=== PATIENT | female | born 1945 | race Caucasian/White ===

== ENCOUNTER 2022-04-12 12:13 | Outpatient (CLI) | payer MEDICARE, OTHER, SELFPAY ==
[2022-04-12 12:37] LABS: Basophils Absolute Auto 0.1 K/mm3 (0.0-0.1); Basophils Percent Auto 0.7 % (0.2-1.2); Eosinophils Absolute Auto 0.6 K/mm3 (0-0.3); Eosinophils Percent Auto 6.4 % (0-4.4); Hematocrit 32.4 % (37.0-47.0); Hemoglobin 9.7 g/dL (12.0-15.0); Immature Granulocyte Absolute 0.03 K/mm3 (0.00-0.031); Immature Granulocyte Percent A 0.4 % (0-0.5); Lymphocytes Absolute Auto 2.58 K/mm3 (0.9-3.2); Lymphocytes Percent Auto 30.2 % (18.3-44.2); Mean Corpuscular HGB Conc 29.9 g/dl (32-36); Mean Corpuscular Hemoglobin 28.3 pg (26-34); Mean Corpuscular Volume 94.5 fl (80-100); Mean Platelet Volume 8.9 fl (7.4-10.4); Monocytes Absolute Auto 0.4 K/mm3 (0.1-0.6); Monocytes Percent Auto 4.9 % (2.6-8.5); Neutrophils Absolute Auto 4.9 K/mm3 (1.3-6.7); Neutrophils Percent Auto 57.4 % (45.5-73.1); Platelet Count Result 208 k/mm3 (150-375); Red Blood Count 3.43 M/mm3 (4.2-5.4); Red Cell Distribution Width 13.8 % (11.5-14.5); White Blood Count 8.5 K/mm3 (4.5-10.0)
[2022-04-12 12:47] LABS: Anion Gap 4 mmol/L (8-16); Blood Urea Nitrogen 36 mg/dL (7-17); Calcium 8.4 mg/dL (8.4-10.2); Carbon Dioxide 26 mmol/L (22-30); Chloride 110 mmol/L (98-107); Estimated Glomerular Filt Rate 27; Glucose 89 mg/dL (65-110); Potassium 4.6 mmol/L (3.4-5.0); Sodium 140 mmol/L (137-145)
[2022-04-12 13:51] LABS: Iron 35 ug/dL (37-170)
[2022-04-12 14:01] LABS: Percent Iron Saturation 11 % (20-50)
== END 2022-04-12 12:14 | disposition home or self-care (01) ==
PROVIDERS: PCP Family Medicine; Visit Provider Family Medicine
DX: C85.10 Unspecified B-cell lymphoma, unspecified site (principal); E55.9 Vitamin D deficiency, unspecified; N18.30 Chronic kidney disease, stage 3 unspecified
CPT/HCPCS: 36415; 80048; 82306; 83540; 83550; 85025

== ENCOUNTER 2023-04-22 11:47 | Inpatient (IN) | payer MEDICARE, OTHER, SELFPAY ==
[2023-04-22] VITALS (25 sets, daily range): BP systolic 94–120; BP diastolic 45–61; PULSE 78–97; RESP 7–22; TEMP 36.3–36.6; O2SAT 92–98; BMI 25.5; BMI 26.4
--- NOTE | ~2023-04-22 | XR_ITS ---
XR chest 2V DATE: 04/22/2023 13:46 INDICATION: Shortness of breath TECHNIQUE: 2 views, AP and lateral projections COMPARISON: None FINDINGS: Cardiomegaly. There is aortic unfolding. There is patchy infiltrate, atelectasis and/or mass density in the right lower lung. Pneumonia and as piration pneumonitis are included in the differential diagnosis. The lungs otherwise appear clear. No pleural effusion or pulmonary vascular congestion or pneumothorax is detected. Pedicle screws and rods are present for posterior cervical spine surgical fusion. There is diffuse os teopenia. Old healed right anterolateral seventh rib fracture. Levoscoliosis of the thoracolumbar spi ne. Lumbar spine pedicle screws and rods are noted at the lower margin of the AP radiograph.. IMPRESSION: Right lower lobe infiltrate, atelectasis and/or mass density Cardiomegaly Reviewed, dictated and finalized at location A.
--- NOTE | ~2023-04-22 | XR_ITS ---
EXAMINATION: XR ERCP DATE: 04/29/2023 12:45 INDICATION: Choledocholithiasis. TECHNIQUE: 18 spot fluoroscopic images of the right upper quadrant were obtained during endoscopic re trograde cholangiopancreatography (ERCP). Fluoroscopy exposure time was 112 seconds. COMPARISON: CT abdomen and pelvis 04/22/2023 FINDINGS: The endoscope is in the second portion of the duodenum. There is contrast opacification of the common duct, which is dilated. Images demonstrate balloon sweeping of the common duct. IMPRESSION: 1. Balloon sweeping of the common duct, which is dilated. Please refer to the ERCP procedure note for additional details. Reviewed, dictated and finalized at location A. IMPRESSION: 1. Balloon sweeping of the common duct, which is dilated. Please refer to the E M[employer] OPERATOR procedure note for additional details.
--- NOTE | ~2023-04-22 | XR_ITS ---
EXAMINATION: XR chest 1V portable DATE: 04/28/2023 13:42 INDICATION: Pneumonia TECHNIQUE: frontal view of the chest was obtained. COMPARISON: Chest radiograph dated 04/22/2023 FINDINGS: Again seen is kyphotic position of the patient with the chin obscuring portions of the bilateral apic es of lungs. Diffuse increased interstitial pattern in the bilateral mid and lower lung zones with mo re patchy airspace opacities in the right mid and lower lung zone. No pleural effusion or pneumothora x. Mild cardiomegaly. Partially visualized vertical basim and pedicle screw fixation for posterior spin al fusion in the lower lumbar spine. IMPRESSION: 1. Interstitial opacities in bilateral mid and lower lung zones with more patchy consolidation in the right mid to lower lung zone consistent with pneumonia, potentially with superimposed mild pulmonary edema. 2. Cardiomegaly. Reviewed, dictated and finalized at location A. IMPRESSION: 1. Interstitial opacities in bilateral mid and lower lung zones with more patch y consolidation in the right mid to lower lung zone consistent with pneumonia, potentially with superimposed mild pulmonary edema. 2. Cardiomegaly.
--- NOTE | ~2023-04-22 | XR_ITS ---
EXAMINATION: XR barium swallow modified DATE: 04/24/2023 08:45 INDICATION: Dysphagia. TECHNIQUE: The patient was given barium-containing material of multiple consistencies to swallow by jeanette palencia speech pathologist while I performed fluoroscopy. Dose-area product was 1.646 Gy-cm2. 1.9 minutes fluoroscopy time FINDINGS: Oral Stage: Within functional limits Pharyngeal Phase: Within functional limits Cervical/Esophageal Stage: Within functional limits IMPRESSION: Modified esophagram findings as above. Please refer [facility]. Reviewed, dictated and finalized at Location A. Reviewed, dictated and finalized at location A. IMPRESSION: Modified esophagram findings as above. Please refer to the speech t herapy report for specific recommendations.
--- NOTE | ~2023-04-22 | CT_ITS ---
EXAMINATION: CT brain wo con INDICATION: Head injury COMPARISON: None TECHNIQUE: Standard unenhanced head CT. The dose-length product (DLP) was 681.00 mGy-cm. The mA was a djusted according to patient size. Iterative reconstruction technique was employed. FINDINGS: There is no acute intraparenchymal hemorrhage. No evidence of mass lesion. No evidence of a cute infarction. Encephalomalacia in the left frontal lobe is consistent with prior infarction. Evalu ation of the posterior fossa is limited by streak artifact from cervical occipital fusion. There is m ild periventricular and subcortical hypodensity probably related to small vessel ischemic disease. Th ere is mild prominence of the sulci and ventricles related to cerebral atrophy. Intracranial calcifie d cerebral atherosclerosis is noted. There are no extra-axial collections. There is no mass effect or midline shift. Changes in the globes are likely from ocular lens surgery. The visualized sinuses and mastoid air cells are well aerated. IMPRESSION: 1. Old left frontal lobe infarct without acute intracranial abnormality. 2. Age related findings. Reviewed, dictated and finalized at location []
--- NOTE | ~2023-04-22 | CT_ITS ---
EXAMINATION: CT abdomen pelvis wo con DATE: 04/22/2023 15:10 INDICATION: Leukocytosis and elevated liver enzymes TECHNIQUE: Computed tomography (CT) of the abdomen and pelvis was performed without intravenous contr ast. Automated exposure control and iterative reconstruction technique were employed. The dose-length product was 396.79 mGy-cm. COMPARISON: None. FINDINGS: Lower thorax: Airway debris in right lower lobe bronchi. Dependent right middle lobe and right lower lobe groundglass and centrilobular nodular opacities with adjacent consolidation. Bibasilar scar/atel ectasis. Aortic valve and coronary artery calcification. Mild cardiomegaly. Liver: Normal. Biliary/Gallbladder: Gallbladder hydrops. Mild intrahepatic and moderate extrahepatic bile duct dilat ion. 10 mm and 9 mm gallstones in the distal common bile duct. Pancreas: Mild atrophy. Spleen: Normal. Adrenals:No mass. Kidneys: No mass, stone, or hydronephrosis. GI tract: Moderate hiatal hernia. Distended, fluid-filled stomach. No small or large bowel dilation. Normal appendix. Diverticulosis without diverticulitis. Mesentery/Peritoneum: No ascites, mass, or free air. Retroperitoneum: No mass. Mild abdominal aortic and/or arterial calcifications. Pelvis: Absent uterus. Mildly distended urinary bladder, without wall thickening. Soft Tissues: Soft tissues and body wall unremarkable. Bones: No acute osseous finding. Severe lumbar scoliosis and multilevel degenerative disc disease in the lumbar spine. Uncomplicated appearing posterior fusion at L4-5. IMPRESSION: Dependent right middle and lower lobe pulmonary opacities concerning for pneumonia, likely with a com ponent of aspiration. Choledocholithiasis. Fluid-filled distended stomach. Mildly distended urinary bladder, without wall thickening. Reviewed, dictated and finalized at location K. IMPRESSION: Dependent right middle and lower lobe pulmonary opacities concerning for pneumo lacey, likely with a component of aspiration. Choledocholithiasis. Fluid-filled distended stomach. Mildly distended urinary bladder, without wall thickening.
--- NOTE | ~2023-04-22 | US_ITS ---
EXAMINATION: US renal BI DATE: 04/23/2023 11:00 INDICATION: Acute kidney injury TECHNIQUE: Multiple grayscale and Doppler ultrasound images of the kidneys were obtained. COMPARISON: None. FINDINGS: The right kidney measures 7.8 x 3.7 x 3.9 cm. The left kidney measures 9.9 x 4.5 x 4.4 cm. The kidneys demonstrate increased parenchymal echogenicity. There is no hydronephrosis. The bladder i s decompressed by Hernandez catheter. Sludge is noted in the gallbladder. IMPRESSION: 1. Medical renal disease. 2. Gallbladder sludge. Reviewed, dictated and finalized at location L.
--- NOTE | 2023-04-22 12:45 | ECG_ITS ---
Measurements Intervals Longs Rate: 86 P: 137 LA: 152 QRS: -25 QRSD: 85 T: -38 QT: 343 QTc: 412 Interpretive Statements SINUS RHYTHM ABNORMAL RHYTHM ECG NO PREVIOUS ECG AVAILABLE FOR COMPARISON Electronically Signed On 04-23-2023 13:05:03 CDT by Zahraa Zuniga M.D.
--- NOTE | 2023-04-22 12:47 | ED.GENADULT ---
HPI - General Adult General Chief complaint: Recheck/Abnormal Lab/Rx Stated complaint: low o2 sat/urinary retention Time Seen by Provider: 04/22/23 11:58 History of Present Illness HPI narrative: 78 old female presenting to the emergency department from home for evaluation of increased lethargy and hypoxia. Family states that the patient does have a history of CHF and did have a ground-level fall last week. Patient was not evaluated for the fall. They are unsure if she struck her head. They stated over the course of the last week patient has had decreased p.o. intake, decreased urinary output and decreased ambulation. Patient is tired appearing during examination. Patient denies any complaints. Family states the patient has had decreased p.o. intake over the course of the last week. Related Data Home Medications Medication Instructions Recorded Confirmed levetiracetam 500 mg tablet 500 mg PO Q12H 02/26/20 04/22/23 aspirin 81 mg chewable tablet 81 mg PO DAILY 04/27/21 04/22/23 (Annita Chewable Low Dose Aspirin) hydrocodone 7.5 mg-acetaminophen 1 tablet PO BID 04/12/22 04/22/23 500 mg tablet meloxicam 15 mg tablet 15 mg PO DAILY 04/22/23 04/22/23 mirabegron 25 mg tablet,extended 25 mg PO DAILY 04/22/23 04/22/23 release 24 hr (Myrbetriq) morphine 15 mg tablet,extended 15 mg PO BID 04/22/23 04/22/23 release Allergies Allergy/AdvReac Type Severity Reaction Status Date / Time cyclobenzaprine Allergy Unknown Unknown Verified 04/22/23 18:42 irbesartan Allergy Unknown Unknown Verified 04/22/23 18:42 pregabalin Allergy Unknown Unknown Verified 04/22/23 18:42 propoxyphene Allergy Unknown Unknown Verified 04/22/23 18:42 Sulfa (Sulfonamide Allergy Unknown Unknown Verified 04/22/23 18:42 Antibiotics) valsartan Allergy Unknown Unknown Verified 04/22/23 18:42 Review of Systems Review of Systems: All systems reviewed & are unremarkable except as noted in HPI and below PMFSH Past Medical History Medical History (Updated 04/22/23 @ 17:07 by Armani Salmon MD) BMI 26.0-26.9,adult Diarrhea Need for pneumococcal vaccination Family History Family History Father No problems noted. Mother No problems noted. Sibling No problems noted. 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 EYES: PERRLA/EOMI, conjunctivae clear. NOSE: Normal no drainage NECK: Supple. No adenopathy, no masses. RESPIRATORY: Bilateral lower lobe rhonchi CARDIOVASCULAR: Regular rate and rhythm without murmurs rubs or gallops. ABDOMINAL: Soft, nontender, nondistended, normal bowel sounds MUSCULOSKELETAL: Moves all extremities. Strength/ROM intact, No edema, No calf tenderness. NEURO: Alert. Cranial nerves II through XII intact. Grossly intact SKIN: Warm, dry. Normal Color Course Course Emergency Course: 78-year-old female presented emergency department for evaluation of increased lethargy over the course of the last week and a head injury. CT head was ordered to evaluate for intracranial abnormality. Baseline labs were ordered including a BNP due to the
--- NOTE | 2023-04-22 12:49 | PC.NURSE ---
Pt fell last Saturday (04/14). Pt has bandages on old skin tears on her left arm and left leg.
[2023-04-22 13:12] LABS: Basophils Percent Auto 0.2 % (0.2-1.2); Eosinophils Percent Auto 0.2 % (0-4.4); Hematocrit 35.4 % (37.0-47.0); Immature Granulocyte Percent A 0.6 % (0-0.5); Lymphocytes Absolute Auto 1.48 K/mm3 (0.9-3.2); Lymphocytes Percent Auto 9.2 % (18.3-44.2); Mean Corpuscular HGB Conc 31.1 g/dl (32-36); Mean Corpuscular Hemoglobin 31.3 pg (26-34); Mean Corpuscular Volume 100.6 fl (80-100); Mean Platelet Volume 10.2 fl (7.4-10.4); Monocytes Absolute Auto 0.5 K/mm3 (0.1-0.6); Monocytes Percent Auto 3.2 % (2.6-8.5); Neutrophils Percent Auto 86.6 % (45.5-73.1); Platelet Count Result 217 k/mm3 (150-375); Red Blood Count 3.52 M/mm3 (4.2-5.4); Red Cell Distribution Width 14.3 % (11.5-14.5); White Blood Count 16.1 K/mm3 (4.5-10.0)
[2023-04-22 13:21] LABS: Alanine Aminotransferase 43 U/L (6-35); Albumin Level 3.2 g/dL (3.5-5.1); Alkaline Phosphatase 420 U/L (38-126); Anion Gap 12 mmol/L (8-16); Aspartate Amino Transferase 39 U/L (14-36); Bilirubin,Total 3.1 mg/dL (0.2-1.3); Blood Urea Nitrogen 80 mg/dL (7-17); Calcium 8.5 mg/dL (8.4-10.2); Carbon Dioxide 19 mmol/L (22-30); Chloride 109 mmol/L (98-107); Estimated CRCL calculation 5 ml/min; Estimated Glomerular Filt Rate 5; Glucose 119 mg/dL (65-110); Potassium 4.9 mmol/L (3.4-5.0); Sodium 140 mmol/L (137-145)
[2023-04-22 13:29] LABS: NT Pro B Type Natriuretic Pept 13600 pg/mL (19.9-100)
[2023-04-22 13:47] LABS: Influenza A QL RT-PCR Negative (Negative); Influenza B QL RT-PCR Negative (Negative); RSV RNA, RT-PCR Negative (Negative); SARS-CoV-2 RNA PCR Negative (Negative)
[2023-04-22] MEDS: SODIUM CHLORIDE 0.9% IV 1,000 ML 250 ML IV CONT (15:30)
[2023-04-22] MEDS: metroNIDAZOLE 500 MG/ISO 100ML 500 MG/100 ML BAG 100 MG IVPB (16:45)
[2023-04-22] MEDS: AZITHROMYCIN 500 MG/NS 250 ML 500 MG/250 ML BAG 250 MG IVPB (16:46)
[2023-04-22 16:58] LABS: Appearance Urine Turbid (Clear); Bacteria Urine None Seen /hpf; Bilirubin Urine 2+ (Negative); Blood Urine Negative (Negative); Color Urine Dark Yellow (Yellow); Glucose Urine UA Negative (Negative); Hyaline Casts Urine Present /lpf; Ketones Urine Negative (Negative); Leukocyte Esterase Ur 2+ LEU/UL (Negative); Nitrate Urine Positive (Negative); Protein Urine 2+ mg/dL (Negative); RBC Urine >100 /hpf (0-2); Squamous Epithelial Cell Urine Many /hpf (Few); Urobilinogen Urine 0.2 mg/dL (<2.0)
[2023-04-22 16:59] LABS: Add Urine Microscopic? YES
--- NOTE | 2023-04-22 18:50 | ADMGEN ---
This patient, Hilaria Horner, was admitted to [facility] Surg Room 321-02. Patient/family oriented to hospital policies and general routines including ID bracelet, bed and alarms, visiting hours, pain management, procedures, bathroom and other care routines, personal items, smoking policy, room service/diet, and visiting hours. Information on how to activate the Rapid Response Team has been discussed. Patient/Family are encouraged to report perceived risks to care and to ask questions if they do not understand what they are told or what they should do.
[2023-04-22 19:44] LABS: Anion Gap 11 mmol/L (8-16); Blood Urea Nitrogen 80 mg/dL (7-17); Calcium 7.8 mg/dL (8.4-10.2); Carbon Dioxide 16 mmol/L (22-30); Chloride 113 mmol/L (98-107); Creatine Kinase 76 U/L (30-135); Estimated CRCL calculation 4 ml/min; Estimated Glomerular Filt Rate 6; Glucose 127 mg/dL (65-110); Magnesium 1.4 mg/dL (1.6-2.3); Potassium 5.2 mmol/L (3.4-5.0); Sodium 140 mmol/L (137-145)
[2023-04-22 20:28] LABS: Hepatitis B Surface Antigen Negative (Negative)
[2023-04-22 20:33] LABS: HAV RESULT Negative (Negative); Hepatitis B Core IgM Result Negative (Negative)
[2023-04-22 20:45] LABS: Hepatitis C Virus Antibody Negative (Negative)
[2023-04-22 21:25] LABS: Toxigenic C. Diff NEGATIVE (NEGATIVE)
--- NOTE | 2023-04-22 23:28 | PM.IMHP ---
H&P: HPI History of Present Illness Date/Time: 04/22/23 19:00 Chief Complaint: Multiple complaints. Narrative: This is a 78-year-old female with history of stroke which has left her with expressive aphasia, dementia, congestive heart failure, hypertension, and chronic pain syndrome who presented to the emergency department for evaluation of multiple complaints. The patient provides a bit of the following history however her daughter Saloni provides majority of the following information, with the patient's permission. The patient lives in her own home but her daughters take turns staying with her 24 hours a day. There have been no recent illnesses in the family to speak of. Last week however the patient started to feel unwell with generalized malaise, fatigue, increasing lethargy, weakness, and poor appetite with decreased oral intake. She has not really had any complaints and fact she has not asked for her narcotic pain medications for a day or more which is highly unusual for her. Her daughter noticed that she has not put out any urine for nearly 24 hours and today the patient began passing copious amounts of diarrhea. Additionally she has appeared to be a bit short of breath and her SpO2 this morning was reportedly 87% on room air. She was afebrile on arrival to the emergency department with blood pressures on the low end of normal. Labs were significant for a WBC count of 16.1, hemoglobin 11.0 sodium 140, potassium 4.9, chloride 109, carbon dioxide 19, BUN 80, creatinine 7.20, glucose 119, total bilirubin 3.1, AST 39, ALT 43, alkaline phosphatase 420, proBNP 09872, total CK 76. Urine was turbid with 2+ protein, positive nitrates, 2+ bilirubin, 2+ leukocyte esterase, greater than 100 RBC, 11 to 20 WBC, many squamous epithelial cells and multiple casts and hyaline casts. Head CT showed no acute findings. Chest x-ray showed right lower lobe infiltrate and cardiomegaly. CT of the abdomen and pelvis showed dependent right middle and lower lobe pulmonary opacities concerning for, likely with a component of aspiration (daughter indicates that the patient does occasionally have dysphagia and will sometimes cough with eating and drinking), choledocholithiasis, fluid-filled distended stomach, and a mildly distended urinary bladder. In the ED she was given 250 mL of NS in addition to doses of azithromycin, ceftriaxone, and metronidazole. She is being admitted in this setting for further treatment and evaluation. At the time my evaluation she is resting and does not have any specific complaints. Of note the patient did have a fall last week without head trauma or loss of consciousness. Review of Systems Review of Systems: Twelve systems were reviewed and are negative except for as per HPI. [facility] Past Medical History Medical History (Updated 04/24/23 @ 12:00 by Diana Elder PA-C) B-cell lymphoma Cerebrovascular accident Residual expressive aphasia. Chronic kidney disease, stage 3 Chronic pain syndrome Chronic prescription opiate use Congestive heart failure Dementia Expressive aphasia History of seizure Vitamin D deficiency Surgical History Surgical History History of bladder suspension procedure History of fusion of cervical spine History of lumbar surgery Family History Family History Father No problems noted. Mother No problems noted. Sibling No problems noted. Social History Social History (Updated 04/24/23 @ 12:01 by Diana Elder PA-C) Social History: Code status: Do not resuscitate. Smoking status: Never smoker Second hand tobacco smoke exposure: Yes Alcohol intake: never Substance use: never Substance use type: does not use Lack of Transportation: No Lack of Food: Never True Current Housing: I Have Housing Concerned About Future Housing: No Diffi
[2023-04-23] VITALS (9 sets, daily range): BP systolic 101–127; BP diastolic 50–60; PULSE 71–84; RESP 14–16; TEMP 36.2–36.8; O2SAT 96; BMI 24.8
--- NOTE | 2023-04-23 | ECHO_ITS ---
Patient Info Name: Hilaria Horner Age: 78 years : 1945 Gender: Female Ht: 61 in Wt: 135 lbs BSA: 1.64 m2 HR: 84 bpm BP: 127 / 60 mmHg Heart Rhythm: Sinus Rhythm Technical Quality: Good Exam Date: 04/23/2023 9:20 AM Exam Location: [facility] Patient Status: Inpatient Admit Date: 04/22/2023 Staff Ordering Physician: Diana Elder PA-C Humanities Coordinator: Fredrick Perez RDCS Attending Provider: Sancho Orozco MD Referring Physician: Jerrod NARAYAN; Exam Type: CA echo doppler color flow Study Info Indications - cardiomegaly/HTN Complete two-dimensional, color flow and Doppler transthoracic echocardiogram is performed. Summary 1. Complete two-dimensional, color flow and Doppler transthoracic echocardiogram is performed. 2. Left ventricular chamber dimension is normal. 3. Left ventricular systolic function is normal, estimated at 65-70%. 4. There is mildly increased left ventricular wall thickness. 5. The left ventricular diastolic function is grade III diastolic dysfunction. 6. Right ventricular systolic function is normal. 7. Left atrial chamber dimension is severely enlarged. 8. Right atrial chamber dimension is severely enlarged. 9. There is moderate aortic valve calcification. 10. There is moderate aortic valve stenosis with a peak velocity of 218 cm/s, mean gradient of 11 mmHg, and aortic valve area of 1 cm2. 11. There is mild mitral valve regurgitation. 12. There is moderate tricuspid valve regurgitation. 13. There is mild pulmonic regurgitation. Left Ventricle Left ventricular chamber dimension is normal. Left ventricular systolic function is normal, estimated at 65-70%. There is mildly increased left ventricular wall thickness. The left ventricular diastolic function is grade III diastolic dysfunction. Right Ventricle Right ventricular chamber dimension is normal. Right ventricular systolic function is normal. Left Atria Left atrial chamber dimension is severely enlarged. Right Atria Right atrial chamber dimension is severely enlarged. Atrial Septum Intact interatrial septum visualized by color flow imaging. Aortic Valve The aortic valve is probable trileaflet. There is moderate aortic valve stenosis with a peak velocity of 218 cm/s, mean gradient of 11 mmHg, and aortic valve area of 1 cm2. There is no aortic valve regurgitation. There is moderate aortic valve calcification. Pulmonic Valve The pulmonic valve is not well visualized. There is mild pulmonic regurgitation. Mitral Valve There is mild mitral valve regurgitation. Tricuspid Valve There is moderate tricuspid valve regurgitation. Pericardium/Pleural There is no pericardial effusion. Inferior Vena Cava Normal inferior vena cava with >50% collapse upon inspiration consistent with normal right atrial pressure, 3 mmHg. Aorta The aortic root size at the sinus of Valsalva is normal. Left Ventricular Outflow Tract Name Value Normal LVOT 2D LVOT Diameter 1.8 cm LVOT Doppler LVOT Peak Gradient 3 mmHg LVOT Mean Gradient 1 mmHg LVOT VTI 17 cm LVOT VTI/AV VTI Ratio 0.4 LVO
[2023-04-23] MEDS: CALCIUM GLUC 1,000 MG/NS 100ML 1,000 MG/100 ML BAG 200 MG IVPB (00:12)
[2023-04-23] MEDS: MAGNESIUM SULF 1 GM/D5W 100 ML 1 GM/100 ML BAG IVPB (00:12)
[2023-04-23] MEDS: SODIUM BICARBONATE 8.4% 50 MEQ/50 ML SYRINGE IV PUSH (00:15)
[2023-04-23] MEDS: LACTATED RINGERS 1,000 ML 100 ML IV CONT (00:15)
[2023-04-23] MEDS: levETIRAcetam 500MG/NACL 100ML 500 MG/100 ML BAG 400 MG IVPB ×3 (01:09→21:29)
[2023-04-23] MEDS: metroNIDAZOLE 500 MG/ISO 100ML 500 MG/100 ML BAG 100 MG IVPB ×3 (01:47→17:53)
[2023-04-23 02:21] LABS: Anion Gap 11 mmol/L (8-16); Blood Urea Nitrogen 85 mg/dL (7-17); Calcium 8.2 mg/dL (8.4-10.2); Carbon Dioxide 16 mmol/L (22-30); Chloride 114 mmol/L (98-107); Estimated CRCL calculation 4 ml/min; Estimated Glomerular Filt Rate 5; Glucose 117 mg/dL (65-110); Potassium 4.6 mmol/L (3.4-5.0); Sodium 141 mmol/L (137-145)
[2023-04-23 06:11] LABS: Hematocrit 30.2 % (37.0-47.0); Hemoglobin 9.2 g/dL (12.0-15.0); Mean Corpuscular HGB Conc 30.5 g/dl (32-36); Mean Corpuscular Hemoglobin 31.2 pg (26-34); Mean Corpuscular Volume 102.4 fl (80-100); Mean Platelet Volume 10.4 fl (7.4-10.4); Platelet Count Result 193 k/mm3 (150-375); Red Blood Count 2.95 M/mm3 (4.2-5.4); Red Cell Distribution Width 14.4 % (11.5-14.5); White Blood Count 19.8 K/mm3 (4.5-10.0)
[2023-04-23 06:33] LABS: Alanine Aminotransferase 34 U/L (6-35); Albumin Level 2.9 g/dL (3.5-5.1); Alkaline Phosphatase 317 U/L (38-126); Anion Gap 14 mmol/L (8-16); Aspartate Amino Transferase 33 U/L (14-36); Bilirubin,Total 2.6 mg/dL (0.2-1.3); Blood Urea Nitrogen 88 mg/dL (7-17); Calcium 8.1 mg/dL (8.4-10.2); Carbon Dioxide 14 mmol/L (22-30); Chloride 112 mmol/L (98-107); Estimated CRCL calculation 4 ml/min; Estimated Glomerular Filt Rate 5; Glucose 99 mg/dL (65-110); Lipase 287 U/L (23-300); Potassium 5.4 mmol/L (3.4-5.0); Sodium 140 mmol/L (137-145)
[2023-04-23] MEDS: PANTOPRAZOLE SODIUM IV 40 MG VIAL IV PUSH (08:03)
--- NOTE | 2023-04-23 14:47 | WPDGICN ---
Assessment and Plan Assessment and plan (1) Sepsis: Code(s): A41.9 - Sepsis, unspecified organism Status: Acute Assessment and Plan: here with aspiration pneumonia and now using oxygen CT scan also noted stones in bile duct, will need ercp but will give at least another day before we can proceed with ercp and general anesthesia it seems that she has been dealing with choking/cough since neck surgery and also known history of stroke, will get barium esophagram and speech evaluation- will need to be on special aspiration diet with precautions (2) Choledocholithiasis: Code(s): K80.50 - Calculus of bile duct without cholangitis or cholecystitis without obstruction Status: Acute Assessment and Plan: given sepsis and pneumonia, hold off on ercp for now until she is less sick (3) Elevated liver enzymes: Code(s): R74.8 - Abnormal levels of other serum enzymes Status: Acute Assessment and Plan: mostly bili and Alk phos, probably from choledocholithiasis continue to monitor (4) Aspiration pneumonia: Code(s): J69.0 - Pneumonitis due to inhalation of food and vomit Status: Acute Assessment and Plan: on antibiotics oxygen as needed (5) Acute on chronic kidney failure: Code(s): N17.9 - Acute kidney failure, unspecified; N18.9 - Chronic kidney disease, unspecified Status: Acute Assessment and Plan: noted worsening renal failure by primary may need nephrology consult if not improvement (6) Expressive aphasia: Code(s): R47.01 - Aphasia Status: Acute GI Consult Note Consult date/time: 04/23/23 14:47 Reason for consult: choledocholithiasis, elevated liver enzymes, aspiration pneumonia HPI: Hilaria Horner is a 78 year old female with history of stroke and expressive aphasia, dementia, congestive heart failure, hypertension, and chronic pain syndrome, most of history obtained from daughter who is at bedside and also records since she is not good historian. She lives in her own home but her daughters take turns staying with her 24 hours a day. Daughter also says that since had neck surgery few years ago she has been coughing and sometimes choking after eating or drinking. She noticed that her mother started to feel unwell with generalized malaise, fatigue and increasing lethargy last week, also decreased oral intake. She also had some shortness of breath and her SpO2 was 87% on room air. Labs showed WBC count of 16.1, hemoglobin 11.0 sodium 140, potassium 4.9, BUN 80, creatinine 7.20, glucose 119, total bilirubin 3.1, AST 39, ALT 43, alkaline phosphatase 420, proBNP 61360, total CK 76. Head CT showed no acute findings. Chest x-ray showed right lower lobe infiltrate and cardiomegaly. CT of the abdomen and pelvis showed dependent right middle and lower lobe pulmonary opacities concerning for, likely with a component of aspiration, choledocholithiasis, fluid-filled distended stomach, and a mildly distended urinary bladder. Now she is on antibiotics, no significant abdominal pain. Review of Systems Constitutional: Constitutional: Reports fatigue and Reports lethargy Eyes: Eyes: Denies photophobia ENT: Reports dysphagia Cardiovascular: Cardiovascular: Denies chest pain Respiratory: Respiratory: Reports cough and Reports dyspnea on exertion Gastrointestinal: Gastrointestinal: Denies melena Musculoskeletal: Musculoskeletal: Denies myalgias Integumentary/Breasts: Skin/Breast: Denies rash Neurologic: Comments: h/p stroke Psychiatric: Psychiatric: Denies homicidal ideation [facility] Past Medical History Medical History (Updated 04/23/23 @ 14:54 by Akbar Briggs MD) B-cell lymphoma Cerebrovascular accident Residual expressive aphasia. Chronic kidney disease, stage 3 Chronic pain syndrome Chronic prescription opiate use Congestive heart failure Dementia Elevated liver enzymes Expressive aphasia History of seizure S
--- NOTE | 2023-04-23 14:56 | PM.IMPN ---
Progress Note: A&P Assessment and Plan (1) Acute on chronic kidney failure: Code(s): N17.9 - Acute kidney failure, unspecified; N18.9 - Chronic kidney disease, unspecified Status: Acute Assessment and Plan: Patient has a creatinine of 1.8 in March 2022. No other lab values available over the past year. Creatinine 7.2 on admission and essentially unchanged today. Hernandez catheter secured. She has metabolic acidosis and hyperkalemia. CT scan of the abdomen shows mildly distended urinary bladder without wall thickening. Kidneys appeared normal. Renal ultrasound shows medical renal disease with gallbladder sludge. Urinalysis showed protein but negative for blood. Despite that the was greater than 100 red blood cells. Nitrate and leukocyte esterase were positive but many squamous epithelial cells. Currently on LR. Will consult Nephrology. Start a acute kidney injury workup. Change IV fluids. Add bicarb. Spoke with family about the possibility of dialysis and they would consider this. Urine culture pending. (2) Aspiration pneumonia: Code(s): J69.0 - Pneumonitis due to inhalation of food and vomit Status: Acute Assessment and Plan: Chest x-ray shows right lower lobe infiltrate. CT of the abdomen pelvis shows dependent right middle lobe and right lower lobe ground-glass and centrilobular and nodular opacity concerning for pneumonia. COVID/RSV/Influenza negative. Consider aspiration. Patient started on Rocephin, azithromycin and Flagyl. She is only on 1 L of oxygen and probably could be weaned to room air. Blood cultures are no growth to date. White count has climbed to 20 K. Patient is NPO. Will order speech therapy evaluation. Continue IV antibiotics (3) Choledocholithiasis: Code(s): K80.50 - Calculus of bile duct without cholangitis or cholecystitis without obstruction Status: Acute Assessment and Plan: CT of the abdomen and pelvis shows gallbladder hydrops with mild intrahepatic and moderate extrahepatic bile duct dilatation. There was a 10 mm and a 9 mm gallstone in the distal common bile duct. Bilirubin was 3.1 and alk phos was 420. AST and ALT were mildly elevated. Repeat LFTs showed normal AST and ALT. Total bilirubin is down to 2.6 with improvement of alk-phos. Lipase is normal. GI has been consulted. She is on appropriate IV antibiotics. Plan to monitor this time. (4) Diarrhea: Code(s): R19.7 - Diarrhea, unspecified Status: Acute Assessment and Plan: Patient has been having excessive diarrhea. No recent antibiotic exposure. Stool studies have been ordered. She has a fecal containment system in place. If she is having excessive diarrhea for prolonged period, she may have prerenal renal failure from this. CDiff negative. Follow up on other stool studies. Continue Flagyl. (5) Abnormal urinalysis: Code(s): R82.90 - Unspecified abnormal findings in urine Status: Acute Assessment and Plan: UA noted. Urine culture pending. Continue IV antibiotics. (6) Cardiomegaly: Code(s): I51.7 - Cardiomegaly Status: Acute Assessment and Plan: [place] [address]. Chest x-ray as mentioned above. Echocardiogram shows EF of 65-70% with grade 3 diastolic dysfunction and moderate aortic stenosis. Patient more likely has pneumonia than CHF exacerbation. (7) Transaminitis: Code(s): R74.01 - Elevation of levels of liver transaminase levels Status: Acute Assessment and Plan: Hepatitis panel negative. Related to above (8) Chronic pain syndrome: Code(s): G89.4 - Chronic pain syndrome Status: Acute Assessment and Plan: Patient is on chronic morphine twice a day as MS Rosalinda. She also takes hydrocodone p.r.n. for breakthrough pain. Will monitor today but resume chronic pain medications tomorrow to prevent withdrawal. Subjective Nickolas
[2023-04-23] MEDS: MORPHINE SULFATE (*CRX) 2 MG/ML INJ 1 MG IV PUSH (16:28)
[2023-04-23 17:17] LABS: Albumin Level 2.8 g/dL (3.5-5.1); Anion Gap 12 mmol/L (8-16); Blood Urea Nitrogen 89 mg/dL (7-17); Calcium 8.3 mg/dL (8.4-10.2); Carbon Dioxide 17 mmol/L (22-30); Chloride 112 mmol/L (98-107); Estimated CRCL calculation 4 ml/min; Estimated Glomerular Filt Rate 5; Glucose 89 mg/dL (65-110); Phosphorus 6.2 mg/dL (2.5-4.5); Potassium 4.7 mmol/L (3.4-5.0); Sodium 141 mmol/L (137-145)
[2023-04-23 17:20] LABS: Creatinine Urine 152.8 mg/dL; Total Protein Urine Random 50 mg/dL; Ur Ttl Prot Creatinine Ratio 0.33 mg/mg (0-0.20); Urea Random Urine 348 MG/DL
[2023-04-23 17:22] LABS: CRP 16.9 mg/dL (<1.0)
[2023-04-23 17:22] LABS: Potassium Urine Random 33.5 meq/L; Sodium Urine Random 46 meq/L
--- NOTE | 2023-04-23 17:25 | PM.CNNEP ---
Assessment and Plan Assessment and plan (1) KWADWO (acute kidney injury): Code(s): N17.9 - Acute kidney failure, unspecified Status: Acute Assessment and Plan: history suggestive of volume depletion/dehydration diminished oral intake diarrhea diminished urine output likely worsened by NSAID use(?) other factors playing a role: infection (pneumonia +/- UTI) gallstones early sepsis (and possible ATN) evauation to date: CPK okay CT of abdomen/renal ultrasound wtihout obstruction urine eosinophils negative urine electrolytes prerenal agree with gentle IVF hydration follow trend of repeat labs and UOP (2) Chronic kidney disease, stage IV (severe): Code(s): N18.4 - Chronic kidney disease, stage 4 (severe) Status: Chronic Assessment and Plan: last creatinine ~ 1.8mg/dl in March 2022 presumably secondary to hypertension, vascular disease, and age (3) Aspiration pneumonia: Code(s): J69.0 - Pneumonitis due to inhalation of food and vomit Status: Acute Assessment and Plan: as suggested by admission imaging and history on antibiotics follow culture data (4) Choledocholithiasis: Code(s): K80.50 - Calculus of bile duct without cholangitis or cholecystitis without obstruction Status: Acute Assessment and Plan: present on admission CT of abdomen suspect etiology of elevated LFTs Gastroenterology following (5) Chronic pain syndrome: Code(s): G89.4 - Chronic pain syndrome Status: Chronic Assessment and Plan: follows with pain management I will continue to follow the patient with you while she remains hospitalized and make further recommendations during her hospital course. Thank you for allowing me to participate in the care of this patient. History of Present Illness Reason for Consult Consult date: 04/23/23 Reason for consult: acute renal failure (on chronic kidney disease) Chief Complaint Chief complaint: KWADWO/Pneumonia/Choledocholithiasis History of Present Illness Narrative: Most of the information have obtained is from review of the electronic medical record as well as discussion with physicians/nurses involved in her care as it difficult to get a full and complete history from the patient due to her mentation. The patient is an 78-year-old female with an extensive past medical history as outlined below who presented to [facility] Emergency room with generalized weakness. Over the last week if not longer, the patient has not felt very well with multiple symptoms / complaints including generalized malaise, fatigue, lethargy, weakness, and poor appetite with decreased oral intake. Further complicating matters is the fact that her family has noticed that she has not urinated very much in the last 24-48 hours. On the day of presentation to the emergency room, she had apparently multiple bouts of diarrhea as well. Given these constellation of symptoms and change in status, her family brought her to the emergency room for further assessment. Workup and evaluation in the emergency room demonstrated the patient to be relatively hypotensive but in no acute distress. Routine blood tests were significant for a elevated white blood cell count of 16.1, relative anemia, and a significant decline in her renal function with a BUN of 80 and a creatinine of 7.2 in association with elevated liver function tests. [place] [address] and a urinalysis was highly suggestive of a urinary tract infection. CT scan of her head showed no acute intracranial process but her chest x-ray showed a right lower lobe infiltrate as well as cardiomegaly. Given her symptoms of diarrhea, she underwent a CT scan of the abdomen pelvis which demonstrated right middle and lower lobe pulmonary opacities concerning for possible aspiration pneumonia, coli toe cholelithiasis, a mildly distended urinary bladder and a fluid-
[2023-04-23 17:27] LABS: Eosinophil Urine None Seen % (None Seen); Urine Eos QC 2nd Tech Confirmed
[2023-04-23 17:49] LABS: Complement C3 85 mg/dL (88-165)
[2023-04-23] MEDS: SODIUM BICARBONATE 8.4% 100 MEQ in DEXTROSE 5% 1,000 ML 1,000 ML IV CONT (17:52)
[2023-04-23] MEDS: AZITHROMYCIN 500 MG/NS 250 ML 500 MG/250 ML BAG 250 MG IVPB (19:05)
[2023-04-24] VITALS (9 sets, daily range): BP systolic 128–156; BP diastolic 64–76; PULSE 74–92; RESP 12–17; TEMP 36.2–37; O2SAT 93–98
[2023-04-24] MEDS: metroNIDAZOLE 500 MG/ISO 100ML 500 MG/100 ML BAG 100 MG IVPB ×3 (00:33→16:45)
[2023-04-24 06:32] LABS: Basophils Percent Auto 0.2 % (0.2-1.2); Eosinophils Absolute Auto 0.2 K/mm3 (0-0.3); Eosinophils Percent Auto 1.8 % (0-4.4); Hematocrit 26.6 % (37.0-47.0); Hemoglobin 8.3 g/dL (12.0-15.0); Immature Granulocyte Absolute 0.18 K/mm3 (0.00-0.031); Immature Granulocyte Percent A 1.4 % (0-0.5); Lymphocytes Absolute Auto 2.46 K/mm3 (0.9-3.2); Lymphocytes Percent Auto 18.8 % (18.3-44.2); Mean Corpuscular HGB Conc 31.2 g/dl (32-36); Mean Corpuscular Hemoglobin 30.6 pg (26-34); Mean Corpuscular Volume 98.2 fl (80-100); Mean Platelet Volume 10.1 fl (7.4-10.4); Monocytes Absolute Auto 0.8 K/mm3 (0.1-0.6); Monocytes Percent Auto 6.1 % (2.6-8.5); Neutrophils Absolute Auto 9.4 K/mm3 (1.3-6.7); Neutrophils Percent Auto 71.7 % (45.5-73.1); Platelet Count Result 206 k/mm3 (150-375); Red Blood Count 2.71 M/mm3 (4.2-5.4); Red Cell Distribution Width 14.2 % (11.5-14.5); White Blood Count 13.1 K/mm3 (4.5-10.0)
[2023-04-24 06:41] LABS: Iron 35 ug/dL (37-170)
[2023-04-24 06:43] LABS: Alanine Aminotransferase 33 U/L (6-35); Albumin Level 2.7 g/dL (3.5-5.1); Alkaline Phosphatase 338 U/L (38-126); Anion Gap 11 mmol/L (8-16); Aspartate Amino Transferase 36 U/L (14-36); Bilirubin,Total 2.3 mg/dL (0.2-1.3); Blood Urea Nitrogen 88 mg/dL (7-17); Calcium 8.1 mg/dL (8.4-10.2); Carbon Dioxide 18 mmol/L (22-30); Chloride 111 mmol/L (98-107); Estimated CRCL calculation 4 ml/min; Estimated Glomerular Filt Rate 6; Glucose 127 mg/dL (65-110); Lipase 503 U/L (23-300); Magnesium 1.7 mg/dL (1.6-2.3); Phosphorus 5.5 mg/dL (2.5-4.5); Sodium 140 mmol/L (137-145)
[2023-04-24 06:50] LABS: Percent Iron Saturation 17 % (20-50)
[2023-04-24 07:51] LABS: Folic Acid > 20.0 ng/mL (2.76->20); Vitamin B12 > 1000.0 pg/mL (239-931)
--- NOTE | 2023-04-24 08:57 | PCSTNOTE ---
Please refer to the Modified Barium Swallow Evaluation in the EMR.
[2023-04-24] MEDS: SODIUM BICARBONATE 8.4% 100 MEQ in DEXTROSE 5% 1,000 ML 1,000 ML IV CONT (09:18)
[2023-04-24] MEDS: DULoxetine HCL 60 MG CAPSULE.DR PO (09:19)
[2023-04-24] MEDS: levETIRAcetam 500MG/NACL 100ML 500 MG/100 ML BAG 400 MG IVPB ×2 (11:37→22:02)
--- NOTE | 2023-04-24 12:20 | PM.IMPN ---
Progress Note: A&P Assessment and Plan (1) Acute on chronic kidney failure: Code(s): N17.9 - Acute kidney failure, unspecified; N18.9 - Chronic kidney disease, unspecified Status: Acute Assessment and Plan: cr elevated appreciate nephrology input continue ivf/bicarb (2) Aspiration pneumonia: Code(s): J69.0 - Pneumonitis due to inhalation of food and vomit Status: Acute Assessment and Plan: continue iv abx resp status ok (3) Choledocholithiasis: Code(s): K80.50 - Calculus of bile duct without cholangitis or cholecystitis without obstruction Status: Acute Assessment and Plan: iv abx appreciate gi input plan ercp at some point (4) Transaminitis: Code(s): R74.01 - Elevation of levels of liver transaminase levels Status: Acute (5) Diarrhea: Code(s): R19.7 - Diarrhea, unspecified Status: Acute Assessment and Plan: monitor (6) Chronic pain syndrome: Code(s): G89.4 - Chronic pain syndrome Status: Acute (7) Chronic prescription opiate use: Code(s): Z79.891 - custodial (current) use of opiate analgesic Status: Acute (8) Abnormal urinalysis: Code(s): R82.90 - Unspecified abnormal findings in urine Status: Acute (9) Cardiomegaly: Code(s): I51.7 - Cardiomegaly Status: Acute Subjective Date/time seen: 04/24/23 12:20 Interval history: no new complaints today no cp, no abd pain speech eval noted Exam Narrative: AF 98.2 101/50 84 16 96% 1L Gen - NARD lying semi-recumbent in bed Chest - bibasilar R>L inspiratory crackles. CV - RRR S1/S2; Tele showing no acute dysrhythmias Abd - Soft, NT/ND, Positive BS. Fecal containment system is in place with small amount of brown stool in bag. - Foely secured with small amount of dark yellow urine in bag Ext - No pedal edema Neuro - awake. mumbles answers to questions. Right gate watch slightly weaker thenleft. Dorsi and plantar flexion intact and equal Skin - Warm and dry Objective Data Vital Signs Vital Signs: Vital Signs - 24 hr 04/23/23 13:50 04/23/23 16:00 04/23/23 21:10 Temperature 98.2 F 97.9 F Pulse Rate 84 84 84 Respiratory Rate 16 14 Blood Pressure 101/50 L 121/55 L Pulse Oximetry 96 96 Oxygen Delivery Oxygen Flow Rate 04/23/23 20:00 04/24/23 00:00 04/24/23 04:00 Temperature Pulse Rate 82 74 77 Respiratory Rate Blood Pressure Pulse Oximetry Oxygen Delivery Oxygen Flow Rate 04/24/23 06:00 04/24/23 08:00 Temperature 97.2 F L Pulse Rate 91 Respiratory Rate 12 Blood Pressure 128/65 Pulse Oximetry 98 93 Oxygen Delivery Nasal Cannula Oxygen Flow Rate 1 Intake/Output Intake/Output: Intake & Output 04/21/23 04/22/23 04/23/23 04/24/23 23:59 23:59 23:59 23:59 Intake Total 1400 1075 1200 Output Total 350 170 Balance 5633 182 7297 Meds/Results Medications: Active Medications Generic Name Dose Route Start Last Admin Trade Name Freq PRN Reason Stop Dose Admin Duloxetine HCl 60 mg 04/24/23 09:00 04/24/23 09:19 Duloxetine Hcl 60 Mg Capsule.Dr PO 60 mg DAILY SIOMARA Administration Ceftriaxone Sodium 1 gm in 50 mls @ 100 mls/hr 04/23/23 16:00 04/23/23 16:28 Rocephin 1 Gm/Ns 50 Ml IVPB 100 mls/hr Q24H SIOMARA Administration Metronidazole 500 mg in 100 mls @ 100 mls/hr 04/23/23 01:00 04/24/23 09:19 Flagyl 500 Mg/Iso Soln 100 Ml IVPB 100 mls/hr Q8H SIOMARA Administration Levetiracetam 500 mg in 100 mls @ 400 mls/hr 04/23/23 10:00 04/24/23 11:37 Keppra Iv IVPB 400 mls/hr Q12H SIOMARA Administration Sodium Bicarbonate 100 meq/ 1,100 mls @ 100 mls/hr 04/23/23 16:00 04/24/23 09:18 Dextrose IV CONT 100 mls/hr .Q11H SIOMARA Administration Azithromycin 500 mg in 250 mls @ 250 mls/hr 04/23/23 18:00 04/23/23 20:05 Zithromax IVPB Infused Q24H SIOMARA Infusion Morphine Sulfate 1 mg 04/22/23 23:52 04/23/23 16:28 Morph
[2023-04-24] MEDS: PANTOPRAZOLE SODIUM IV 40 MG VIAL IV PUSH (12:22)
--- NOTE | 2023-04-24 13:53 | WPDGIPROGNO ---
Progress Note: A&P Assessment and Plan (1) Aspiration pneumonia: Code(s): J69.0 - Pneumonitis due to inhalation of food and vomit Status: Acute Assessment and Plan: on treatment seems better (2) Choledocholithiasis: Code(s): K80.50 - Calculus of bile duct without cholangitis or cholecystitis without obstruction Status: Acute Assessment and Plan: probably ercp in 2 days, she is slowly improving from pneumonia she also passed swallow evaluation (3) Acute on chronic kidney failure: Code(s): N17.9 - Acute kidney failure, unspecified; N18.9 - Chronic kidney disease, unspecified Status: Acute Assessment and Plan: still with renal failure nephrology on board (4) Elevated liver enzymes: Code(s): R74.8 - Abnormal levels of other serum enzymes Status: Acute Assessment and Plan: stable (5) Expressive aphasia: Code(s): R47.01 - Aphasia Status: Acute (6) Chronic pain syndrome: Code(s): G89.4 - Chronic pain syndrome Status: Acute Subjective Date/time seen: 04/24/23 13:53 Interval history: she passed modified barium swallow and just had something to eat, daughter at bedside Review of Systems Review of Systems: All systems reviewed & are unremarkable except as noted in HPI and below Exam Const: Other: Moderately ill-appearing elderly female HENMT: Other: Normocephalic, atraumatic. Slightly hard of hearing. Eyes: Other: Pupils are reactive. Extraocular motions intact. Sclerae anicteric. Neck: Other: Supple. Resp: Auscultation: no wheezes Other: Respirations are nonlabored. Cardio: Other: Regular rate and rhythm with normal S1-S2. GI: Other: Abdomen is soft and nondistended with positive bowel sounds. No guarding or rebound tenderness. Skin: Other: Warm, dry, and pale. Neuro: Other: Alert. She has evidence of expressive aphasia. Generalized weakness without gross focal findings. Extrem: Other: No cyanosis, clubbing, or edema. Psych: Other: Cooperative. Flat mood and affect. Objective Data Vital Signs Vital Signs: Vital Signs - 24 hr 04/23/23 16:00 04/23/23 21:10 04/23/23 20:00 Temperature 97.9 F Pulse Rate 84 84 82 Respiratory Rate 14 Blood Pressure 121/55 L Pulse Oximetry 96 Oxygen Delivery Oxygen Flow Rate 04/24/23 00:00 04/24/23 04:00 04/24/23 06:00 Temperature 97.2 F L Pulse Rate 74 77 91 Respiratory Rate 12 Blood Pressure 128/65 Pulse Oximetry 98 Oxygen Delivery Oxygen Flow Rate 04/24/23 08:00 04/24/23 08:00 04/24/23 12:00 Temperature Pulse Rate 83 89 Respiratory Rate Blood Pressure Pulse Oximetry 93 Oxygen Delivery Nasal Cannula Oxygen Flow Rate 1 Intake/Output Intake/Output: Intake & Output 04/21/23 04/22/23 04/23/23 04/24/23 23:59 23:59 23:59 23:59 Intake Total 1400 1075 1300 Output Total 350 170 Balance 0785 823 3738 Meds/Results Medications: Active Medications Generic Name Dose Route Start Last Admin Trade Name Freq PRN Reason Stop Dose Admin Duloxetine HCl 60 mg 04/24/23 09:00 04/24/23 09:19 Duloxetine Hcl 60 Mg Capsule.Dr PO 60 mg DAILY SIOMARA Administration Ceftriaxone Sodium 1 gm in 50 mls @ 100 mls/hr 04/23/23 16:00 04/23/23 16:28 Rocephin 1 Gm/Ns 50 Ml IVPB 100 mls/hr Q24H SIOMARA Administration Metronidazole 500 mg in 100 mls @ 100 mls/hr 04/23/23 01:00 04/24/23 09:19 Flagyl 500 Mg/Iso Soln 100 Ml IVPB 100 mls/hr Q8H SIOMARA Administration Levetiracetam 500 mg in 100 mls @ 400 mls/hr 04/23/23 10:00 04/24/23 11:37 Keppra Iv IVPB 400 mls/hr Q12H SIOMARA Administration Sodium Bicarbonate 100 meq/ 1,100 mls @ 100 mls/hr 04/23/23 16:00 04/24/23 09:18 Dextrose IV CONT 100 mls/hr .Q11H SIOMARA Administration Azithromycin 500 mg in 250 mls @ 250 mls/hr 04/23/23 18:00 04/23
--- NOTE | 2023-04-24 14:20 | P.PNNP_ITS ---
Progress Note: A&P Assessment and Plan (1) KWADWO (acute kidney injury): Code(s): N17.9 - Acute kidney failure, unspecified Status: Acute Assessment and Plan: * mild improvement noted * history suggestive of volume depletion/dehydration * diminished oral intake * diarrhea * diminished urine output * likely worsened by NSAID use(?) * other factors playing a role: * infection (pneumonia +/- UTI) * gallstones * early sepsis (and possible ATN) * evauation to date: * CPK okay * CT of abdomen/renal ultrasound wtihout obstruction * urine eosinophils negative * urine electrolytes prerenal * agree with gentle IVF hydration as tolerated * follow trend of repeat labs and UOP (2) Chronic kidney disease, stage IV (severe): Code(s): N18.4 - Chronic kidney disease, stage 4 (severe) Status: Chronic Assessment and Plan: * last creatinine ~ 1.8mg/dl in March 2022 * presumably secondary to hypertension, vascular disease, and age (3) Aspiration pneumonia: Code(s): J69.0 - Pneumonitis due to inhalation of food and vomit Status: Acute Assessment and Plan: * as suggested by admission imaging and history * on antibiotics * follow culture data (4) Choledocholithiasis: Code(s): K80.50 - Calculus of bile duct without cholangitis or cholecystitis without obstruction Status: Acute Assessment and Plan: * present on admission CT of abdomen * suspect etiology of elevated LFTs * Gastroenterology following (5) Chronic pain syndrome: Code(s): G89.4 - Chronic pain syndrome Status: Chronic Assessment and Plan: * follows with pain management Long extensive discussion (>25 min) with the patient's daughter at bedside regarding the patient's significant / severe acute kidney injury/acute renal failure and the possible concern that if no significant improvement occurs with conservative therapy, she may require renal replacement therapy/dialysis. She appeared to voice understanding to this possibility. Will continue to follow. Subjective Date/time seen: 04/24/23 14:20 Interval history: Follow-up for acute kidney injury/acute renal failure on chronic kidney disease. She appears to be more awake/alert at the time of my visit; slight improvement in renal function with ongoing urine output; passed swallow study earlier today; daughter at bedside and we discussed the situation. Exam Narrative: General: frail and elederly female in NAD Heart: normal S1 and S2; no rub Lungs: coarse with a few bibasilar crackles Abdomen: soft, nontender, nondistended, positive bowel sounds Extremities: no cyanosis or clubbing; no edema Skin: warm and dry Objective Data Vital Signs Vital Signs: Vital Signs Temp Pulse Resp BP Pulse Ox O2 Del Method O2 Flow Rate 04/24/23 14:00 97.6 F 80 12 139/64 96 04/24/23 12:00 89 04/24/23 08:00 83 04/24/23 08:00 93 Nasal Cannula 1 04/24/23 06:00 97.2 F L 91 12 128/65 98 04/24/23 04:00 77 04/24/23 00:00 74 04/23/23 20:00 82 04/23/23 21:10 97.9 F 84 14 121/55 L 96 Intake/Output Intake/Output: Intake & Output 04/21/23 04/22/23 04/23/23 04/24/23 23:59 23:
--- NOTE | 2023-04-24 14:20 | PM.PNNEP ---
Progress Note: A&P Assessment and Plan (1) KWADWO (acute kidney injury): Code(s): N17.9 - Acute kidney failure, unspecified Status: Acute Assessment and Plan: mild improvement noted history suggestive of volume depletion/dehydration diminished oral intake diarrhea diminished urine output likely worsened by NSAID use(?) other factors playing a role: infection (pneumonia +/- UTI) gallstones early sepsis (and possible ATN) evauation to date: CPK okay CT of abdomen/renal ultrasound wtihout obstruction urine eosinophils negative urine electrolytes prerenal agree with gentle IVF hydration as tolerated follow trend of repeat labs and UOP (2) Chronic kidney disease, stage IV (severe): Code(s): N18.4 - Chronic kidney disease, stage 4 (severe) Status: Chronic Assessment and Plan: last creatinine ~ 1.8mg/dl in March 2022 presumably secondary to hypertension, vascular disease, and age (3) Aspiration pneumonia: Code(s): J69.0 - Pneumonitis due to inhalation of food and vomit Status: Acute Assessment and Plan: as suggested by admission imaging and history on antibiotics follow culture data (4) Choledocholithiasis: Code(s): K80.50 - Calculus of bile duct without cholangitis or cholecystitis without obstruction Status: Acute Assessment and Plan: present on admission CT of abdomen suspect etiology of elevated LFTs Gastroenterology following (5) Chronic pain syndrome: Code(s): G89.4 - Chronic pain syndrome Status: Chronic Assessment and Plan: follows with pain management Long extensive discussion (>25 min) with the patient's daughter at bedside regarding the patient's significant / severe acute kidney injury/acute renal failure and the possible concern that if no significant improvement occurs with conservative therapy, she may require renal replacement therapy/dialysis. She appeared to voice understanding to this possibility. Will continue to follow. Subjective Date/time seen: 04/24/23 14:20 Interval history: Follow-up for acute kidney injury/acute renal failure on chronic kidney disease. She appears to be more awake/alert at the time of my visit; slight improvement in renal function with ongoing urine output; passed swallow study earlier today; daughter at bedside and we discussed the situation. Exam Narrative: General: frail and elederly female in NAD Heart: normal S1 and S2; no rub Lungs: coarse with a few bibasilar crackles Abdomen: soft, nontender, nondistended, positive bowel sounds Extremities: no cyanosis or clubbing; no edema Skin: warm and dry Objective Data Vital Signs Vital Signs: Vital Signs Temp Pulse Resp BP Pulse Ox O2 Del Method O2 Flow Rate 04/24/23 14:00 97.6 F 80 12 139/64 96 04/24/23 12:00 89 04/24/23 08:00 83 04/24/23 08:00 93 Nasal Cannula 1 04/24/23 06:00 97.2 F L 91 12 128/65 98 04/24/23 04:00 77 04/24/23 00:00 74 04/23/23 20:00 82 04/23/23 21:10 97.9 F 84 14 121/55 L 96 Intake/Output Intake/Output: Intake & Output 04/21/23 04/22/23 04/23/23 04/24/23 23:59 23:59 23:59 23:59 Intake Total 1400 1125 1500 Output Total 350 170 Balance 6580 591 2342 Meds/Results Medications: Active Medications Generic Name Dose Route Start Last Admin Trade Name Jojo PRN Reason Stop Dose Admin Duloxetine HCl 60 mg 04/24/23 09:00 04/24/23 09:19 Duloxetine Hcl 60 Mg Capsule.Dr PO 60 mg DAILY SIOMARA Administration Ceftriaxone Sodium 1 gm in 50 mls @ 100 mls/hr 04/23/23 16:00 04/24/23 15:03 Rocephin 1 Gm/Ns 50 Ml IVPB 100 mls/hr Q24H SIOMARA Administration Metronidazole 500 mg in 100 mls @ 100 mls/hr 04/23/23 01:00 04/24/23 16:45 Flagyl 500 Mg/Iso Soln 100 Ml IVPB 100 mls/hr Q8H SIOMARA Administration Levetiracetam 500 mg in 100 mls @ 40
[2023-04-24] MEDS: AZITHROMYCIN 500 MG/NS 250 ML 500 MG/250 ML BAG 250 MG IVPB (18:53)
[2023-04-25] VITALS (12 sets, daily range): BP systolic 149–160; BP diastolic 76–80; PULSE 77–102; RESP 18–20; TEMP 36.2–37.1; O2SAT 92–96
[2023-04-25] MEDS: SODIUM BICARBONATE 8.4% 100 MEQ in DEXTROSE 5% 1,000 ML 1,000 ML IV CONT ×2 (00:03→16:52)
[2023-04-25] MEDS: metroNIDAZOLE 500 MG/ISO 100ML 500 MG/100 ML BAG 100 MG IVPB ×3 (00:04→18:00)
[2023-04-25] MEDS: DULoxetine HCL 60 MG CAPSULE.DR PO (09:22)
[2023-04-25] MEDS: PANTOPRAZOLE SODIUM IV 40 MG VIAL IV PUSH (09:22)
[2023-04-25] MEDS: MORPHINE SULFATE (*CRX) 2 MG/ML INJ 1 MG IV PUSH ×3 (09:28→20:02)
[2023-04-25 09:48] LABS: Anion Gap 11 mmol/L (8-16); Blood Urea Nitrogen 83 mg/dL (7-17); Calcium 7.8 mg/dL (8.4-10.2); Carbon Dioxide 21 mmol/L (22-30); Chloride 106 mmol/L (98-107); Estimated CRCL calculation 7 ml/min; Estimated Glomerular Filt Rate 8; Glucose 174 mg/dL (65-110); Potassium 3.5 mmol/L (3.4-5.0); Sodium 138 mmol/L (137-145)
[2023-04-25] MEDS: levETIRAcetam 500MG/NACL 100ML 500 MG/100 ML BAG 400 MG IVPB ×2 (10:04→22:36)
--- NOTE | 2023-04-25 13:31 | PCNFU ---
Nutrition Follow-Up Complete: Inadequate energy intake related to NPO status as evidenced by current diet orders Goal:Meet estimated needs Pt is progressing towards goal, continue with same goal. Pt current nutrition is Regular, soft and bite sized level 6 . Nutrition recommendation: Last recorded weight is 65.1 kg. Bowel Motility: No BM recorded Labs Reviewed: GFR:8, BUN:83, Cr: 5.2, Glu:174 Meds Noted: Protonix Skin: no skin issues noted. Additional Notes: Pt diet has been upgraded to Regular, soft and bite sized level 6 per [employer] EXAMINER evaluation and recommendation. Intake varied from 25-75%. Ensure compact BID in place per RD recommendation. Continue to encourage po intake of meals and supplements. Monitor for intake, wt, labs. Follow up in 5 days.
--- NOTE | 2023-04-25 14:07 | PM.PNNEP ---
Progress Note: A&P Assessment and Plan (1) KWADWO (acute kidney injury): Code(s): N17.9 - Acute kidney failure, unspecified Status: Acute Assessment and Plan: improvement noted creatinine appears to the peaked/plateaued at 7.5mg/dl history suggestive of volume depletion/dehydration diminished oral intake diarrhea diminished urine output likely worsened by NSAID use(?) other factors playing a role: infection (pneumonia +/- UTI) gallstones early sepsis (and possible ATN) evauation to date: CPK okay CT of abdomen/renal ultrasound wtihout obstruction urine eosinophils negative urine electrolytes prerenal agree with gentle IVF hydration as tolerated follow trend of repeat labs and UOP (2) Chronic kidney disease, stage IV (severe): Code(s): N18.4 - Chronic kidney disease, stage 4 (severe) Status: Chronic Assessment and Plan: last creatinine ~ 1.8mg/dl in March 2022 presumably secondary to hypertension, vascular disease, and age (3) Aspiration pneumonia: Code(s): J69.0 - Pneumonitis due to inhalation of food and vomit Status: Acute Assessment and Plan: as suggested by admission imaging and history on antibiotics follow culture data (4) Choledocholithiasis: Code(s): K80.50 - Calculus of bile duct without cholangitis or cholecystitis without obstruction Status: Acute Assessment and Plan: present on admission CT of abdomen suspect etiology of elevated LFTs Gastroenterology following (5) Hypertension: Code(s): I10 - Essential (primary) hypertension Status: Chronic Assessment and Plan: reasonable control follow trend of hemodynamics (6) Chronic pain syndrome: Code(s): G89.4 - Chronic pain syndrome Status: Chronic Assessment and Plan: follows with pain management Will continue to follow. Subjective Date/time seen: 04/25/23 14:07 Interval history: Follow-up for acute kidney injury/acute renal failure on chronic kidney disease. No apparent distress noted/voiced at the time of my visit; renal function improving by trend of labs; eating and drinking okay; no issues/events overnight or earlier this morning. Exam Narrative: General: frail and elederly female in NAD Heart: normal S1 and S2; no rub Lungs: coarse and a few crackles at bases Abdomen: soft, nontender, nondistended, positive bowel sounds Extremities: no cyanosis or clubbing; no edema Skin: warm and intact Objective Data Vital Signs Vital Signs: Vital Signs Temp Pulse Resp BP Pulse Ox O2 Del Method O2 Flow Rate 04/25/23 14:00 97.8 F 102 H 18 160/80 H 92 04/25/23 11:24 Room Air 04/25/23 07:56 92 Nasal Cannula 1 04/25/23 06:00 98.7 F 90 18 150/76 H 96 04/25/23 04:00 89 04/25/23 04:29 96 Nasal Cannula 1 04/25/23 00:00 77 04/24/23 20:00 87 04/24/23 21:42 98.6 F 92 17 156/76 H 96 04/24/23 16:00 82 Intake/Output Intake/Output: Intake & Output 04/22/23 04/23/23 04/24/23 04/25/23 23:59 23:59 23:59 23:59 Intake Total 1400 1125 3390 460 Output Total 350 920 175 Balance 2453 237 9551 285 Meds/Results Medications: Active Medications Generic Name Dose Route Start Last Admin Trade Name Freq PRN Reason Stop Dose Admin Duloxetine HCl 60 mg 04/24/23 09:00 04/25/23 09:22 Duloxetine Hcl 60 Mg Capsule.Dr PO 60 mg DAILY SIOMARA Administration Ceftriaxone Sodium 1 gm in 50 mls @ 100 mls/hr 04/23/23 16:00 04/24/23 15:33 Rocephin 1 Gm/Ns 50 Ml IVPB Infused Q24H [facility]OMARA Infusion Metronidazole 500 mg in 100 mls @ 100 mls/hr 04/23/23 01:00 04/25/23 09:21 Flagyl 500 Mg/Iso Soln 100 Ml IVPB 100 mls/hr Q8H SIOMARA Administration Levetiracetam 500 mg in 100 mls @ 400 mls/hr 04/23/23 10:00 04/25/23 10:04 Keppra Iv IVPB 400 mls/hr Q12H SIOMARA Administration Sodium Bicar
--- NOTE | 2023-04-25 14:07 | P.PNNP_ITS ---
Progress Note: A&P Assessment and Plan (1) KWADWO (acute kidney injury): Code(s): N17.9 - Acute kidney failure, unspecified Status: Acute Assessment and Plan: * improvement noted * creatinine appears to the peaked/plateaued at 7.5mg/dl * history suggestive of volume depletion/dehydration * diminished oral intake * diarrhea * diminished urine output * likely worsened by NSAID use(?) * other factors playing a role: * infection (pneumonia +/- UTI) * gallstones * early sepsis (and possible ATN) * evauation to date: * CPK okay * CT of abdomen/renal ultrasound wtihout obstruction * urine eosinophils negative * urine electrolytes prerenal * agree with gentle IVF hydration as tolerated * follow trend of repeat labs and UOP (2) Chronic kidney disease, stage IV (severe): Code(s): N18.4 - Chronic kidney disease, stage 4 (severe) Status: Chronic Assessment and Plan: * last creatinine ~ 1.8mg/dl in March 2022 * presumably secondary to hypertension, vascular disease, and age (3) Aspiration pneumonia: Code(s): J69.0 - Pneumonitis due to inhalation of food and vomit Status: Acute Assessment and Plan: * as suggested by admission imaging and history * on antibiotics * follow culture data (4) Choledocholithiasis: Code(s): K80.50 - Calculus of bile duct without cholangitis or cholecystitis without obstruction Status: Acute Assessment and Plan: * present on admission CT of abdomen * suspect etiology of elevated LFTs * Gastroenterology following (5) Hypertension: Code(s): I10 - Essential (primary) hypertension Status: Chronic Assessment and Plan: * reasonable control * follow trend of hemodynamics (6) Chronic pain syndrome: Code(s): G89.4 - Chronic pain syndrome Status: Chronic Assessment and Plan: * follows with pain management Will continue to follow. Subjective Date/time seen: 04/25/23 14:07 Interval history: Follow-up for acute kidney injury/acute renal failure on chronic kidney disease. No apparent distress noted/voiced at the time of my visit; renal function improving by trend of labs; eating and drinking okay; no issues/events overnight or earlier this morning. Exam Narrative: General: frail and elederly female in NAD Heart: normal S1 and S2; no rub Lungs: coarse and a few crackles at bases Abdomen: soft, nontender, nondistended, positive bowel sounds Extremities: no cyanosis or clubbing; no edema Skin: warm and intact Objective Data Vital Signs Vital Signs: Vital Signs Temp Pulse Resp BP Pulse Ox O2 Del Method O2 Flow Rate 04/25/23 14:00 97.8 F 102 H 18 160/80 H 92 04/25/23 11:24 Room Air 04/25/23 07:56 92 Nasal Cannula 1 04/25/23 06:00 98.7 F 90 18 150/76 H 96 04/25/23 04:00 89 04/25/23 04:29 96 Nasal Cannula 1 04/25/23 00:00 77 04/24/23 20:00 87 04/24/23 21:42 98.6 F 92 17 156/76 H 96 04/24/23 16:00 82 Intake/Output Intake/Output: Intake & Output 04/22/23 04/23/23 04/24/23 04/25/23 23:59 23:59 23:59 23:59 Intake Total 1400 1125 3390 460 Output Total 350
--- NOTE | 2023-04-25 15:07 | PM.IMPN ---
Progress Note: A&P Assessment and Plan (1) Acute on chronic kidney failure: Code(s): N17.9 - Acute kidney failure, unspecified; N18.9 - Chronic kidney disease, unspecified Status: Acute Assessment and Plan: cr elevated appreciate nephrology input continue ivf/bicarb (2) Aspiration pneumonia: Code(s): J69.0 - Pneumonitis due to inhalation of food and vomit Status: Acute Assessment and Plan: continue iv abx resp status ok (3) Choledocholithiasis: Code(s): K80.50 - Calculus of bile duct without cholangitis or cholecystitis without obstruction Status: Acute Assessment and Plan: iv abx appreciate gi input plan ercp at some point (4) Transaminitis: Code(s): R74.01 - Elevation of levels of liver transaminase levels Status: Acute (5) Diarrhea: Code(s): R19.7 - Diarrhea, unspecified Status: Acute Assessment and Plan: monitor (6) Chronic pain syndrome: Code(s): G89.4 - Chronic pain syndrome Status: Acute (7) Chronic prescription opiate use: Code(s): Z79.891 - assisted (current) use of opiate analgesic Status: Acute (8) Abnormal urinalysis: Code(s): R82.90 - Unspecified abnormal findings in urine Status: Acute (9) Cardiomegaly: Code(s): I51.7 - Cardiomegaly Status: Acute Subjective Date/time seen: 04/25/23 15:07 Interval history: No new complaints. Exam Narrative: AF 98.2 101/50 84 16 96% 1L Gen - NARD lying semi-recumbent in bed Chest - bibasilar R>L inspiratory crackles. CV - RRR S1/S2; Tele showing no acute dysrhythmias Abd - Soft, NT/ND, Positive BS. Fecal containment system is in place with small amount of brown stool in bag. - Foely secured with small amount of dark yellow urine in bag Ext - No pedal edema Neuro - awake. mumbles answers to questions. 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 Dorsi and plantar flexion intact and equal Skin - Warm and dry Objective Data Vital Signs Vital Signs: Vital Signs - 24 hr 04/24/23 16:00 04/24/23 21:42 04/24/23 20:00 Temperature 98.6 F Pulse Rate 82 92 87 Respiratory Rate 17 Blood Pressure 156/76 H Pulse Oximetry 96 Oxygen Delivery Oxygen Flow Rate Fraction of Inspired Oxygen 04/25/23 00:00 04/25/23 04:29 04/25/23 04:00 Temperature Pulse Rate 77 89 Respiratory Rate Blood Pressure Pulse Oximetry 96 Oxygen Delivery Nasal Cannula Oxygen Flow Rate 1 Fraction of Inspired Oxygen 24 04/25/23 06:00 04/25/23 07:56 04/25/23 11:24 Temperature 98.7 F Pulse Rate 90 Respiratory Rate 18 Blood Pressure 150/76 H Pulse Oximetry 96 92 Oxygen Delivery Nasal Cannula Room Air Oxygen Flow Rate 1 Fraction of Inspired Oxygen 04/25/23 14:00 Temperature 97.8 F Pulse Rate 102 H Respiratory Rate 18 Blood Pressure 160/80 H Pulse Oximetry 92 Oxygen Delivery Oxygen Flow Rate Fraction of Inspired Oxygen Intake/Output Intake/Output: Intake & Output 04/22/23 04/23/23 04/24/23 04/25/23 23:59 23:59 23:59 23:59 Intake Total 1400 1125 3390 460 Output Total 350 920 175 Balance 8178 993 9974 285 Meds/Results Medications: Active Medications Generic Name Dose Route Start Last Admin Trade Name Freq PRN Reason Stop Dose Admin Duloxetine HCl 60 mg 04/24/23 09:00 04/25/23 09:22 Duloxetine Hcl 60 Mg Capsule.Dr PO 60 mg DAILY SIOMARA Administration Ceftriaxone Sodium 1 gm in 50 mls @ 100 mls/hr 04/23/23 16:00 04/24/23 15:33 Rocephin 1 Gm/Ns 50 Ml IVPB Infused Q24H [facility]ARA Infusion Metronidazole 500 mg in 100 mls @ 100 mls/hr 04/23/23 01:00 04/25/23 09:21 Flagyl 500 Mg/Iso Soln 100 Ml IVPB 100 mls/hr Q8H [facility]ARA Administration Levetiracetam 500 mg in 100 mls @ 400 mls/hr 04/23/23 10:00 04/25/23 10:04 Keppra Iv IVPB 400 mls/hr Q12H [facility]OMARA Administration Sodium Bicarbonate 100 meq/ 1,100 mls @ 100 mls/hr 04/23/23 16:00 06
--- NOTE | 2023-04-25 16:53 | WPDGIPROGNO ---
Progress Note: A&P Assessment and Plan (1) Aspiration pneumonia: Code(s): J69.0 - Pneumonitis due to inhalation of food and vomit Status: Acute Assessment and Plan: on treatment seems better (2) Choledocholithiasis: Code(s): K80.50 - Calculus of bile duct without cholangitis or cholecystitis without obstruction Status: Acute Assessment and Plan: family would prefer to wait and will reassess given that she is still recovering from pneumonia and also persistent renal failure bili came down, repeat in am (3) Acute on chronic kidney failure: Code(s): N17.9 - Acute kidney failure, unspecified; N18.9 - Chronic kidney disease, unspecified Status: Acute Assessment and Plan: still with renal failure nephrology on board (4) Elevated liver enzymes: Code(s): R74.8 - Abnormal levels of other serum enzymes Status: Acute Assessment and Plan: stable repeat cmp in am (5) Expressive aphasia: Code(s): R47.01 - Aphasia Status: Acute (6) Chronic pain syndrome: Code(s): G89.4 - Chronic pain syndrome Status: Acute Subjective Date/time seen: 04/25/23 16:53 Interval history: no pain, she is comfortable family at bedside she is eating more Review of Systems Review of Systems: All systems reviewed & are unremarkable except as noted in HPI and below Exam Const: Other: comfortable, no distress HENMT: Other: Normocephalic, atraumatic. Slightly hard of hearing. Eyes: Other: Pupils are reactive. Sclerae anicteric. Neck: Other: Supple. Resp: Auscultation: no wheezes Other: Respirations are nonlabored. Cardio: Other: Regular rate and rhythm with normal S1-S2. GI: Other: Abdomen is soft and nondistended with positive bowel sounds. No guarding or rebound tenderness. Skin: Other: Warm, dry, and pale. Neuro: Other: Alert. She has evidence of expressive aphasia. Generalized weakness without gross focal findings. Extrem: Other: No cyanosis, clubbing, or edema. Psych: Other: Cooperative. Flat mood and affect. Objective Data Vital Signs Vital Signs: Vital Signs - 24 hr 04/24/23 21:42 04/24/23 20:00 04/25/23 00:00 Temperature 98.6 F Pulse Rate 92 87 77 Respiratory Rate 17 Blood Pressure 156/76 H Pulse Oximetry 96 Oxygen Delivery Oxygen Flow Rate Fraction of Inspired Oxygen 04/25/23 04:29 04/25/23 04:00 04/25/23 06:00 Temperature 98.7 F Pulse Rate 89 90 Respiratory Rate 18 Blood Pressure 150/76 H Pulse Oximetry 96 96 Oxygen Delivery Nasal Cannula Oxygen Flow Rate 1 Fraction of Inspired Oxygen 04/25/23 07:56 04/25/23 11:24 04/25/23 14:00 Temperature 97.8 F Pulse Rate 102 H Respiratory Rate 18 Blood Pressure 160/80 H Pulse Oximetry 92 92 Oxygen Delivery Nasal Cannula Room Air Oxygen Flow Rate 1 Fraction of Inspired Oxygen 04/25/23 09:22 Temperature Pulse Rate Respiratory Rate Blood Pressure Pulse Oximetry 92 Oxygen Delivery Room Air Oxygen Flow Rate Fraction of Inspired Oxygen Intake/Output Intake/Output: Intake & Output 04/22/23 04/23/23 04/24/23 04/25/23 23:59 23:59 23:59 23:59 Intake Total 1400 1125 3390 460 Output Total 350 920 175 Balance 3844 362 8838 285 Meds/Results Medications: Active Medications Generic Name Dose Route Start Last Admin Trade Name Freq PRN Reason Stop Dose Admin Duloxetine HCl 60 mg 04/24/23 09:00 04/25/23 09:22 Duloxetine Hcl 60 Mg Capsule.Dr PO 60 mg DAILY SIOMARA Administration Ceftriaxone Sodium 1 gm in 50 mls @ 100 mls/hr 04/23/23 16:00 04/24/23 15:33 Rocephin 1 Gm/Ns 50 Ml IVPB Infused Q24H [facility] Infusion Metronidazole 500 mg in 100 mls @ 100 mls/hr 04/23/23 01:00 04/25/23 09:21 Flagyl 500 Mg/Iso Soln 100 Ml IVPB 100 mls/hr Q8H SIOMARA Administration Levetiracetam 500 mg in 1
[2023-04-25 19:06] LABS: Complement Total CH50 >60 U/mL (31-60)
[2023-04-25] MEDS: AZITHROMYCIN 500 MG/NS 250 ML 500 MG/250 ML BAG 250 MG IVPB (19:58)
[2023-04-25 20:50] LABS: Albumin 2.4 g/dL (3.8-4.8); Alpha 1 Globulin 0.5 g/dL (0.2-0.3); Alpha 2 Globulin 0.7 g/dL (0.5-0.9); Beta 1 Globulin 0.3 g/dL (0.4-0.6); Gamma Globulin 1.1 g/dL (0.8-1.7); Protein, Total 5.3 g/dL (6.1-8.1)
[2023-04-26] VITALS (9 sets, daily range): BP systolic 148–170; BP diastolic 77–97; PULSE 60–107; RESP 18–22; TEMP 36.9–37.1; O2SAT 90–95
[2023-04-26] MEDS: metroNIDAZOLE 500 MG/ISO 100ML 500 MG/100 ML BAG 100 MG IVPB ×3 (00:19→16:10)
[2023-04-26 06:10] LABS: Basophils Absolute Auto 0.1 K/mm3 (0.0-0.1); Basophils Percent Auto 0.6 % (0.2-1.2); Eosinophils Absolute Auto 0.2 K/mm3 (0-0.3); Eosinophils Percent Auto 1.7 % (0-4.4); Hematocrit 26.2 % (37.0-47.0); Hemoglobin 8.7 g/dL (12.0-15.0); Immature Granulocyte Absolute 0.23 K/mm3 (0.00-0.031); Immature Granulocyte Percent A 1.9 % (0-0.5); Lymphocytes Percent Auto 29.4 % (18.3-44.2); Mean Corpuscular HGB Conc 33.2 g/dl (32-36); Mean Corpuscular Volume 96.3 fl (80-100); Mean Platelet Volume 10.4 fl (7.4-10.4); Monocytes Absolute Auto 0.7 K/mm3 (0.1-0.6); Monocytes Percent Auto 5.9 % (2.6-8.5); Neutrophils Absolute Auto 7.4 K/mm3 (1.3-6.7); Neutrophils Percent Auto 60.5 % (45.5-73.1); Platelet Count Result 230 k/mm3 (150-375); Red Blood Count 2.72 M/mm3 (4.2-5.4); Red Cell Distribution Width 13.5 % (11.5-14.5); White Blood Count 12.3 K/mm3 (4.5-10.0)
[2023-04-26 06:29] LABS: Alanine Aminotransferase 28 U/L (6-35); Albumin Level 2.6 g/dL (3.5-5.1); Alkaline Phosphatase 302 U/L (38-126); Anion Gap 6 mmol/L (8-16); Aspartate Amino Transferase 29 U/L (14-36); Blood Urea Nitrogen 70 mg/dL (7-17); Calcium 7.4 mg/dL (8.4-10.2); Carbon Dioxide 26 mmol/L (22-30); Chloride 106 mmol/L (98-107); Estimated CRCL calculation 9 ml/min; Estimated Glomerular Filt Rate 10; Glucose 108 mg/dL (65-110); Potassium 3.1 mmol/L (3.4-5.0); Sodium 138 mmol/L (137-145)
[2023-04-26 07:54] LABS: Pneumococcal Antigen Urine Not Detected (Not Detected)
[2023-04-26] MEDS: PANTOPRAZOLE SODIUM IV 40 MG VIAL IV PUSH (08:21)
[2023-04-26] MEDS: DULoxetine HCL 60 MG CAPSULE.DR PO (08:21)
[2023-04-26] MEDS: SODIUM BICARBONATE 8.4% 100 MEQ in DEXTROSE 5% 1,000 ML 1,000 ML IV CONT ×2 (08:29→19:55)
[2023-04-26] MEDS: levETIRAcetam 500MG/NACL 100ML 500 MG/100 ML BAG 400 MG IVPB ×2 (09:06→21:42)
--- NOTE | 2023-04-26 11:31 | PM.IMPN ---
Progress Note: A&P Assessment and Plan (1) Acute on chronic kidney failure: Code(s): N17.9 - Acute kidney failure, unspecified; N18.9 - Chronic kidney disease, unspecified Status: Acute Assessment and Plan: cr elevated appreciate nephrology input continue ivf Kidney function is improving. (2) Aspiration pneumonia: Code(s): J69.0 - Pneumonitis due to inhalation of food and vomit Status: Acute Assessment and Plan: continue iv abx resp status ok (3) Choledocholithiasis: Code(s): K80.50 - Calculus of bile duct without cholangitis or cholecystitis without obstruction Status: Acute Assessment and Plan: iv abx appreciate gi input plan ercp at some point (4) Transaminitis: Code(s): R74.01 - Elevation of levels of liver transaminase levels Status: Acute (5) Diarrhea: Code(s): R19.7 - Diarrhea, unspecified Status: Acute Assessment and Plan: monitor (6) Chronic pain syndrome: Code(s): G89.4 - Chronic pain syndrome Status: Acute (7) Chronic prescription opiate use: Code(s): Z79.891 - care home (current) use of opiate analgesic Status: Acute (8) Abnormal urinalysis: Code(s): R82.90 - Unspecified abnormal findings in urine Status: Acute (9) Cardiomegaly: Code(s): I51.7 - Cardiomegaly Status: Acute Subjective Date/time seen: 04/26/23 11:31 Interval history: Feeling better Exam Narrative: Chest - bibasilar R>L inspiratory crackles. CV - RRR S1/S2; Tele showing no acute dysrhythmias Abd - Soft, NT/ND, Positive BS. Fecal containment system is in place with small amount of brown stool in bag. - Foely secured with small amount of dark yellow urine in bag Ext - No pedal edema Neuro - awake. mumbles answers to questions. 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 Dorsi and plantar flexion intact and equal Skin - Warm and dry Objective Data Vital Signs Vital Signs: Vital Signs - 24 hr 04/25/23 14:00 04/25/23 12:00 04/25/23 16:00 Temperature 97.8 F Pulse Rate 102 H 90 90 Respiratory Rate 18 Blood Pressure 160/80 H Pulse Oximetry 92 Oxygen Delivery 04/25/23 21:03 04/25/23 20:00 04/25/23 20:00 Temperature 97.2 F L Pulse Rate 90 87 90 Respiratory Rate 20 20 Blood Pressure 149/80 H Pulse Oximetry 93 93 Oxygen Delivery Room Air 04/26/23 00:00 04/26/23 04:00 04/26/23 05:59 Temperature 98.7 F Pulse Rate 85 88 92 Respiratory Rate 18 Blood Pressure 170/85 H Pulse Oximetry 90 Oxygen Delivery 04/26/23 08:15 04/26/23 08:00 Temperature Pulse Rate 89 Respiratory Rate Blood Pressure Pulse Oximetry Oxygen Delivery Room Air Intake/Output Intake/Output: Intake & Output 04/23/23 04/24/23 04/25/23 04/26/23 23:59 23:59 23:59 23:59 Intake Total 1125 3640 2600 1890 Output Total 350 920 725 700 Balance 775 2720 1875 1190 Meds/Results Medications: Active Medications Generic Name Dose Route Start Last Admin Trade Name Sydq PRN Reason Stop Dose Admin Duloxetine HCl 60 mg 04/24/23 09:00 04/26/23 08:21 Duloxetine Hcl 60 Mg Capsule. PO 60 mg DAILY SIOMARA Administration Ceftriaxone Sodium 1 gm in 50 mls @ 100 mls/hr 04/23/23 16:00 04/25/23 17:22 Rocephin 1 Gm/Ns 50 Ml IVPB Infused Q24H [facility] Infusion Metronidazole 500 mg in 100 mls @ 100 mls/hr 04/23/23 01:00 04/26/23 09:25 Flagyl 500 Mg/Iso Soln 100 Ml IVPB Infused Q8H [facility] Infusion Levetiracetam 500 mg in 100 mls @ 400 mls/hr 04/23/23 10:00 04/26/23 09:25 Keppra Iv IVPB Infused Q12H [facility] Infusion Sodium Bicarbonate 100 meq/ 1,100 mls @ 100 mls/hr 04/23/23 16:00 04/26/23 08:29 Dextrose IV CONT 100 mls/hr .Q11H SIOMARA Administration Azithromycin 500 mg in 250 mls @ 250 mls/hr 04/23/23 18:00 04/25/23 19:58 Zithromax IVPB 250 mls/hr Q24H SIOMARA Administration Morphine Sulfate 1 mg 04/22/23 23:52
--- NOTE | 2023-04-26 13:15 | PM.PNNEP ---
Progress Note: A&P Assessment and Plan (1) KWADWO (acute kidney injury): Code(s): N17.9 - Acute kidney failure, unspecified Status: Acute Assessment and Plan: improvement noted creatinine appears to the peaked/plateaued at 7.5mg/dl history suggestive of volume depletion/dehydration diminished oral intake diarrhea diminished urine output likely worsened by NSAID use(?) other factors playing a role: infection (pneumonia +/- UTI) gallstones early sepsis (and possible ATN) evauation to date: CPK okay CT of abdomen/renal ultrasound wtihout obstruction urine eosinophils negative urine electrolytes prerenal agree with gentle IVF hydration as tolerated (on bicarb fluids) follow trend of repeat labs and UOP (2) Chronic kidney disease, stage IV (severe): Code(s): N18.4 - Chronic kidney disease, stage 4 (severe) Status: Chronic Assessment and Plan: last creatinine ~ 1.8mg/dl in March 2022 presumably secondary to hypertension, vascular disease, and age (3) Aspiration pneumonia: Code(s): J69.0 - Pneumonitis due to inhalation of food and vomit Status: Acute Assessment and Plan: as suggested by admission imaging and history on antibiotics follow culture data (4) Choledocholithiasis: Code(s): K80.50 - Calculus of bile duct without cholangitis or cholecystitis without obstruction Status: Acute Assessment and Plan: present on admission CT of abdomen suspect etiology of elevated LFTs Gastroenterology following (5) Hypertension: Code(s): I10 - Essential (primary) hypertension Status: Chronic Assessment and Plan: creeping up probably okay to restart BP medications slowly follow trend of hemodynamics (6) Chronic pain syndrome: Code(s): G89.4 - Chronic pain syndrome Status: Chronic Assessment and Plan: follows with pain management Will continue to follow. Subjective Date/time seen: 04/26/23 13:15 Interval history: Follow-up for acute kidney injury/acute renal failure on chronic kidney disease. Continues to make slow and steady progress; ongoing improvement noted in renal function/creatinine; no apparent disress noted at the time of my visit; respiratory status seems stable; discussed with daughter at bedside. Exam Narrative: General: frail and elderly female in NAD Heart: normal S1 and S2; no rub Lungs: coarse and decreased at bases Abdomen: soft, nontender, nondistended, positive bowel sounds Extremities: no cyanosis or clubbing; no edema Skin: no rash Objective Data Vital Signs Vital Signs: Vital Signs Temp Pulse Resp BP Pulse Ox O2 Del Method 04/26/23 08:00 89 04/26/23 08:15 Room Air 04/26/23 05:59 98.7 F 92 18 170/85 H 90 04/26/23 04:00 88 04/26/23 00:00 85 04/25/23 20:00 90 20 93 Room Air 04/25/23 20:00 87 04/25/23 21:03 97.2 F L 90 20 149/80 H 93 04/25/23 16:00 90 04/25/23 14:00 97.8 F 102 H 18 160/80 H 92 Intake/Output Intake/Output: Intake & Output 04/23/23 04/24/23 04/25/23 04/26/23 23:59 23:59 23:59 23:59 Intake Total 1125 3640 2600 1890 Output Total 350 920 725 700 Balance 775 2720 1875 1190 Meds/Results Medications: Active Medications Generic Name Dose Route Start Last Admin Trade Name Sydq PRN Reason Stop Dose Admin Duloxetine HCl 60 mg 04/24/23 09:00 04/26/23 08:21 Duloxetine Hcl 60 Mg Capsule.Dr PO 60 mg DAILY SIOMARA Administration Ceftriaxone Sodium 1 gm in 50 mls @ 100 mls/hr 04/23/23 16:00 04/25/23 17:22 Rocephin 1 Gm/Ns 50 Ml IVPB Infused Q24H [facility] Infusion Metronidazole 500 mg in 100 mls @ 100 mls/hr 04/23/23 01:00 04/26/23 09:25 Flagyl 500 Mg/Iso Soln 100 Ml IVPB Infused Q8H [facility] Infusion Levetiracetam 500 mg in 100 mls @ 400 mls/hr 04/23/23 10:00 04/26/23 09:25 Keppra Iv IVPB Infuse
--- NOTE | 2023-04-26 13:15 | P.PNNP_ITS ---
Progress Note: A&P Assessment and Plan (1) KWADWO (acute kidney injury): Code(s): N17.9 - Acute kidney failure, unspecified Status: Acute Assessment and Plan: * improvement noted * creatinine appears to the peaked/plateaued at 7.5mg/dl * history suggestive of volume depletion/dehydration * diminished oral intake * diarrhea * diminished urine output * likely worsened by NSAID use(?) * other factors playing a role: * infection (pneumonia +/- UTI) * gallstones * early sepsis (and possible ATN) * evauation to date: * CPK okay * CT of abdomen/renal ultrasound wtihout obstruction * urine eosinophils negative * urine electrolytes prerenal * agree with gentle IVF hydration as tolerated (on bicarb fluids) * follow trend of repeat labs and UOP (2) Chronic kidney disease, stage IV (severe): Code(s): N18.4 - Chronic kidney disease, stage 4 (severe) Status: Chronic Assessment and Plan: * last creatinine ~ 1.8mg/dl in March 2022 * presumably secondary to hypertension, vascular disease, and age (3) Aspiration pneumonia: Code(s): J69.0 - Pneumonitis due to inhalation of food and vomit Status: Acute Assessment and Plan: * as suggested by admission imaging and history * on antibiotics * follow culture data (4) Choledocholithiasis: Code(s): K80.50 - Calculus of bile duct without cholangitis or cholecystitis without obstruction Status: Acute Assessment and Plan: * present on admission CT of abdomen * suspect etiology of elevated LFTs * Gastroenterology following (5) Hypertension: Code(s): I10 - Essential (primary) hypertension Status: Chronic Assessment and Plan: * creeping up * probably okay to restart BP medications slowly * follow trend of hemodynamics (6) Chronic pain syndrome: Code(s): G89.4 - Chronic pain syndrome Status: Chronic Assessment and Plan: * follows with pain management Will continue to follow. Subjective Date/time seen: 04/26/23 13:15 Interval history: Follow-up for acute kidney injury/acute renal failure on chronic kidney disease. Continues to make slow and steady progress; ongoing improvement noted in renal function/creatinine; no apparent disress noted at the time of my visit; respiratory status seems stable; discussed with daughter at bedside. Exam Narrative: General: frail and elderly female in NAD Heart: normal S1 and S2; no rub Lungs: coarse and decreased at bases Abdomen: soft, nontender, nondistended, positive bowel sounds Extremities: no cyanosis or clubbing; no edema Skin: no rash Objective Data Vital Signs Vital Signs: Vital Signs Temp Pulse Resp BP Pulse Ox O2 Del Method 04/26/23 08:00 89 04/26/23 08:15 Room Air 04/26/23 05:59 98.7 F 92 18 170/85 H 90 04/26/23 04:00 88 04/26/23 00:00 85 04/25/23 20:00 90 20 93 Room Air 04/25/23 20:00 87 04/25/23 21:03 97.2 F L 90 20 149/80 H 93 04/25/23 16:00 90 04/25/23 14:00 97.8 F 102 H 18 160/80 H 92 Intake/Output Intake/Output: Intake & Output 04/23/23 04/24/23 04/25/23 04/26/23 23:59 23:59 23:59 23:59
[2023-04-26] MEDS: MORPHINE SULFATE (*CRX) 2 MG/ML INJ 1 MG IV PUSH (14:19)
--- NOTE | 2023-04-26 14:23 | WPDGIPROGNO ---
Progress Note: A&P Assessment and Plan (1) Aspiration pneumonia: Code(s): J69.0 - Pneumonitis due to inhalation of food and vomit Status: Acute Assessment and Plan: on treatment she is doing better (2) Choledocholithiasis: Code(s): K80.50 - Calculus of bile duct without cholangitis or cholecystitis without obstruction Status: Acute Assessment and Plan: bili 2, no pain plan for ercp on Saturday- she has slowly recovering from mey and pneumonia (3) Acute on chronic kidney failure: Code(s): N17.9 - Acute kidney failure, unspecified; N18.9 - Chronic kidney disease, unspecified Status: Acute Assessment and Plan: slowly improving nephrology on board (4) Elevated liver enzymes: Code(s): R74.8 - Abnormal levels of other serum enzymes Status: Acute Assessment and Plan: bili 2 (5) Expressive aphasia: Code(s): R47.01 - Aphasia Status: Acute Subjective Date/time seen: 04/26/23 14:23 Interval history: good spirits, sitting up in chair, daughter at bedside Review of Systems Review of Systems: All systems reviewed & are unremarkable except as noted in HPI and below Exam Const: Other: comfortable, no distress HENMT: Other: Normocephalic, atraumatic. Slightly hard of hearing. Eyes: Other: Pupils are reactive. Sclerae anicteric. Neck: Other: Supple. Resp: Auscultation: rales (few rales in bases) Other: Respirations are nonlabored. Cardio: Other: Regular rate and rhythm with normal S1-S2. GI: Other: Abdomen is soft and nondistended with positive bowel sounds. No guarding or rebound tenderness. Skin: Other: Warm, dry, and pale. Neuro: Other: Alert. She has evidence of expressive aphasia. Generalized weakness without gross focal findings. Extrem: Other: No cyanosis, clubbing, or edema. Psych: Other: Cooperative. Flat mood and affect. Objective Data Vital Signs Vital Signs: Vital Signs - 24 hr 04/25/23 16:00 04/25/23 21:03 04/25/23 20:00 Temperature 97.2 F L Pulse Rate 90 90 87 Respiratory Rate 20 Blood Pressure 149/80 H Pulse Oximetry 93 Oxygen Delivery 04/25/23 20:00 04/26/23 00:00 04/26/23 04:00 Temperature Pulse Rate 90 85 88 Respiratory Rate 20 Blood Pressure Pulse Oximetry 93 Oxygen Delivery Room Air 04/26/23 05:59 04/26/23 08:15 04/26/23 08:00 Temperature 98.7 F Pulse Rate 92 89 Respiratory Rate 18 Blood Pressure 170/85 H Pulse Oximetry 90 Oxygen Delivery Room Air Intake/Output Intake/Output: Intake & Output 04/23/23 04/24/23 04/25/23 04/26/23 23:59 23:59 23:59 23:59 Intake Total 1125 3640 2600 1890 Output Total 350 920 725 700 Balance 775 2720 1875 1190 Meds/Results Medications: Active Medications Generic Name Dose Route Start Last Admin Trade Name Freq PRN Reason Stop Dose Admin Duloxetine HCl 60 mg 04/24/23 09:00 04/26/23 08:21 Duloxetine Hcl 60 Mg Capsule.Dr PO 60 mg DAILY SIOMARA Administration Ceftriaxone Sodium 1 gm in 50 mls @ 100 mls/hr 04/23/23 16:00 04/25/23 17:22 Rocephin 1 Gm/Ns 50 Ml IVPB Infused Q24H SIOMARA Infusion Metronidazole 500 mg in 100 mls @ 100 mls/hr 04/23/23 01:00 04/26/23 09:25 Flagyl 500 Mg/Iso Soln 100 Ml IVPB Infused Q8H SIOMARA Infusion Levetiracetam 500 mg in 100 mls @ 400 mls/hr 04/23/23 10:00 04/26/23 09:25 Keppra Iv IVPB Infused Q12H SIOMARA Infusion Sodium Bicarbonate 100 meq/ 1,100 mls @ 100 mls/hr 04/23/23 16:00 04/26/23 08:29 Dextrose IV CONT 100 mls/hr .Q11H SIOMARA Administration Azithromycin 500 mg in 250 mls @ 250 mls/hr 04/23/23 18:00 04/25/23 19:58 Zithromax IVPB 250 mls/hr Q24H SIOMARA Administration Morphine Sulfate 1 mg 04/22/23 23:52 04/26/23 14:19 Morphine Sulfate (*Crx) 2 Mg/Ml Inj IV PUSH 1 mg Q4H PRN Administration Pain Rated 7-10 [place]
[2023-04-26] MEDS: AZITHROMYCIN 250 MG TABLET 500 MG PO (16:54)
[2023-04-26 18:29] LABS: Mycoplasma IgM Antibody Titer 337 U/mL (<770)
[2023-04-27] VITALS (11 sets, daily range): BP systolic 153–181; BP diastolic 69–91; PULSE 81–107; RESP 12–20; TEMP 37.1–37.4; O2SAT 91–95
[2023-04-27] MEDS: metroNIDAZOLE 500 MG/ISO 100ML 500 MG/100 ML BAG 100 MG IVPB ×3 (00:52→16:05)
[2023-04-27] MEDS: SODIUM BICARBONATE 8.4% 100 MEQ in DEXTROSE 5% 1,000 ML 1,000 ML IV CONT ×2 (04:53→14:31)
[2023-04-27] MEDS: MORPHINE SULFATE (*CRX) 2 MG/ML INJ 1 MG IV PUSH ×3 (05:00→20:37)
[2023-04-27 05:57] LABS: Basophils Percent Auto 0.2 % (0.2-1.2); Eosinophils Absolute Auto 0.3 K/mm3 (0-0.3); Hematocrit 26.2 % (37.0-47.0); Hemoglobin 8.6 g/dL (12.0-15.0); Immature Granulocyte Absolute 0.15 K/mm3 (0.00-0.031); Immature Granulocyte Percent A 1.2 % (0-0.5); Lymphocytes Absolute Auto 4.07 K/mm3 (0.9-3.2); Lymphocytes Percent Auto 31.9 % (18.3-44.2); Mean Corpuscular HGB Conc 32.8 g/dl (32-36); Mean Corpuscular Hemoglobin 31.3 pg (26-34); Mean Corpuscular Volume 95.3 fl (80-100); Mean Platelet Volume 10.5 fl (7.4-10.4); Monocytes Absolute Auto 0.9 K/mm3 (0.1-0.6); Monocytes Percent Auto 6.7 % (2.6-8.5); Neutrophils Absolute Auto 7.4 K/mm3 (1.3-6.7); Platelet Count Result 235 k/mm3 (150-375); Red Blood Count 2.75 M/mm3 (4.2-5.4); Red Cell Distribution Width 13.2 % (11.5-14.5); White Blood Count 12.8 K/mm3 (4.5-10.0)
[2023-04-27 06:19] LABS: Alanine Aminotransferase 24 U/L (6-35); Albumin Level 2.6 g/dL (3.5-5.1); Alkaline Phosphatase 306 U/L (38-126); Anion Gap 6 mmol/L (8-16); Aspartate Amino Transferase 31 U/L (14-36); Bilirubin,Total 1.7 mg/dL (0.2-1.3); Blood Urea Nitrogen 58 mg/dL (7-17); Calcium 7.1 mg/dL (8.4-10.2); Carbon Dioxide 31 mmol/L (22-30); Chloride 100 mmol/L (98-107); Estimated CRCL calculation 14 ml/min; Estimated Glomerular Filt Rate 18; Glucose 108 mg/dL (65-110); Phosphorus 3.8 mg/dL (2.5-4.5); Potassium 2.9 mmol/L (3.4-5.0); Sodium 137 mmol/L (137-145)
[2023-04-27] MEDS: PANTOPRAZOLE SODIUM IV 40 MG VIAL IV PUSH (08:28)
[2023-04-27] MEDS: DULoxetine HCL 60 MG CAPSULE.DR PO (08:28)
[2023-04-27] MEDS: POTASSIUM CHLORIDE 20 MEQ PACKET (FOR LIQUID) 40 MEQ PO (08:28)
[2023-04-27] MEDS: levETIRAcetam 500MG/NACL 100ML 500 MG/100 ML BAG 400 MG IVPB ×2 (09:36→21:35)
--- NOTE | 2023-04-27 10:03 | PM.IMPN ---
Progress Note: A&P Assessment and Plan (1) Acute on chronic kidney failure: Code(s): N17.9 - Acute kidney failure, unspecified; N18.9 - Chronic kidney disease, unspecified Status: Acute Assessment and Plan: cr elevated appreciate nephrology input continue ivf Kidney function is improving. (2) Aspiration pneumonia: Code(s): J69.0 - Pneumonitis due to inhalation of food and vomit Status: Acute Assessment and Plan: continue iv abx resp status ok (3) Choledocholithiasis: Code(s): K80.50 - Calculus of bile duct without cholangitis or cholecystitis without obstruction Status: Acute Assessment and Plan: iv abx appreciate gi input plan ercp at some point (4) Transaminitis: Code(s): R74.01 - Elevation of levels of liver transaminase levels Status: Acute (5) Diarrhea: Code(s): R19.7 - Diarrhea, unspecified Status: Acute Assessment and Plan: monitor (6) Chronic pain syndrome: Code(s): G89.4 - Chronic pain syndrome Status: Chronic (7) Chronic prescription opiate use: Code(s): Z79.891 - [facility] ([facility] use of opiate analgesic Status: Acute (8) Abnormal urinalysis: Code(s): R82.90 - Unspecified abnormal findings in urine Status: Acute (9) Cardiomegaly: Code(s): I51.7 - Cardiomegaly Status: Acute Subjective Date/time seen: 04/27/23 10:03 Interval history: no issues Exam Narrative: Chest - bibasilar R>L inspiratory crackles. CV - RRR S1/S2; Tele showing no acute dysrhythmias Abd - Soft, NT/ND, Positive BS. Fecal containment system is in place with small amount of brown stool in bag. - Foely secured with small amount of dark yellow urine in bag Ext - No pedal edema Neuro - awake. mumbles answers to questions. 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 Dorsi and plantar flexion intact and equal Skin - Warm and dry Objective Data Vital Signs Vital Signs: Vital Signs - 24 hr 04/26/23 12:00 04/26/23 14:00 04/26/23 16:00 Temperature 98.5 F Pulse Rate 107 H 60 107 H Respiratory Rate 22 H Blood Pressure 151/97 H Pulse Oximetry 94 Oxygen Delivery Fraction of Inspired Oxygen 04/26/23 21:41 04/26/23 20:00 04/26/23 20:00 Temperature 98.7 F Pulse Rate 91 91 85 Respiratory Rate 18 18 Blood Pressure 148/77 H Pulse Oximetry 95 95 Oxygen Delivery Room Air Fraction of Inspired Oxygen 24 04/27/23 00:00 04/27/23 05:26 04/27/23 04:00 Temperature 99.3 F Pulse Rate 81 84 85 Respiratory Rate 16 Blood Pressure 166/69 H Pulse Oximetry 91 Oxygen Delivery Fraction of Inspired Oxygen 04/27/23 08:00 04/27/23 08:00 Temperature Pulse Rate 88 Respiratory Rate Blood Pressure Pulse Oximetry Oxygen Delivery Room Air Fraction of Inspired Oxygen Intake/Output Intake/Output: Intake & Output 04/24/23 04/25/23 04/26/23 04/27/23 23:59 23:59 23:59 23:59 Intake Total 3640 2600 3740 1530 Output Total 658 657 5611 550 Balance 2720 1875 2165 980 Meds/Results Medications: Active Medications Generic Name Dose Route Start Last Admin Trade Name Freq PRN Reason Stop Dose Admin Azithromycin 500 mg 04/26/23 18:00 04/26/23 16:54 Azithromycin 250 Mg Tablet PO 04/27/23 18:01 500 mg DAILY@1800 SIOMARA Administration Duloxetine HCl 60 mg 04/24/23 09:00 04/27/23 08:28 Duloxetine Hcl 60 Mg Capsule.Dr PO 60 mg DAILY SIOMARA Administration Ceftriaxone Sodium 1 gm in 50 mls @ 100 mls/hr 04/23/23 16:00 04/26/23 15:55 Rocephin 1 Gm/Ns 50 Ml IVPB Infused Q24H [facility] Infusion Metronidazole 500 mg in 100 mls @ 100 mls/hr 04/23/23 01:00 04/27/23 09:30 Flagyl 500 Mg/Iso Soln 100 Ml IVPB Infused Q8H SIOMARA Infusion Levetiracetam 500 mg in 100 mls @ 400 mls/hr 04/23/23 10:00 04/27/23 09:36 Keppra Iv IVPB 400 mls/hr Q12H SIOMARA Administration Sodium Bicarbonate 100 meq/ 1,100 mls @ 100
--- NOTE | 2023-04-27 15:07 | P.PNNP_ITS ---
Progress Note: A&P Assessment and Plan (1) KWADWO (acute kidney injury): Code(s): N17.9 - Acute kidney failure, unspecified Status: Acute Assessment and Plan: * improvement noted * creatinine appears to the peaked/plateaued at 7.5mg/dl * history suggestive of volume depletion/dehydration * diminished oral intake * diarrhea * diminished urine output * likely worsened by NSAID use(?) * other factors playing a role: * infection (pneumonia +/- UTI) * gallstones * early sepsis (and possible ATN) * evauation to date: * CPK okay * CT of abdomen/renal ultrasound wtihout obstruction * urine eosinophils negative * urine electrolytes prerenal * She has been getting some IV fluids. * Her creatinine level has improved dramatically. * She is still not eating so will continue fluids for 1 more day. Will reduce rate however because of trace edema and the high blood pressure. * Check a creatinine tomorrow (2) Chronic kidney disease, stage IV (severe): Code(s): N18.4 - Chronic kidney disease, stage 4 (severe) Status: Chronic Assessment and Plan: * last creatinine ~ 1.8mg/dl in March 2022 * presumably secondary to hypertension, vascular disease, and age (3) Aspiration pneumonia: Code(s): J69.0 - Pneumonitis due to inhalation of food and vomit Status: Acute Assessment and Plan: * as suggested by admission imaging and history * on a Zithromax in and Flagyl. * Blood cultures negative so far (4) Choledocholithiasis: Code(s): K80.50 - Calculus of bile duct without cholangitis or cholecystitis without obstruction Status: Acute Assessment and Plan: * present on admission CT of abdomen * AST and ALT are both normal now. Bilirubin is improving. * Gastroenterology following (5) Hypertension: Code(s): I10 - Essential (primary) hypertension Status: Chronic Assessment and Plan: * Blood pressure is high now. * She is on no blood pressure meds right now. * Will restart labetalol [id number] twice a day. * Increase dose tomorrow if things are not better. (6) Chronic pain syndrome: Code(s): G89.4 - Chronic pain syndrome Status: Chronic Assessment and Plan: * follows with pain management Subjective Date/time seen: 07/01/23 15:07 Interval history: Patient is comfortable sitting up in a chair. Not eating very well. Daughter and family are in the room. Exam Narrative: General: frail and elderly female in NAD Heart: normal S1 and S2; no rub or gallop Lungs: Fairly clear, decreased breath sounds at the bases. Abdomen: soft, nontender, nondistended, positive bowel sounds Extremities: no cyanosis or clubbing; trace bilateral edema Skin: no rash or subQ nodules Objective Data Vital Signs Vital Signs: Vital Signs - 24 hr 04/26/23 16:00 04/26/23 21:41 04/26/23 20:00 Temperature 98.7 F Pulse Rate 107 H 91 91 Respiratory Rate 18 18 Blood Pressure 148/77 H Pulse Oximetry 95 95 Oxygen Delivery Room Air Fraction of Inspired Oxygen 24 04/26/23 20:00 04/27/23 00:00 04/27/23 05:26 Temperature 99.3 F Pulse Rate 85 81 84 Respiratory Rate 16 Blood Pressure 166/69 H Pulse Oximetry 91 Oxygen Delivery [facility]
--- NOTE | 2023-04-27 15:07 | PM.PNNEP ---
Progress Note: A&P Assessment and Plan (1) KWADWO (acute kidney injury): Code(s): N17.9 - Acute kidney failure, unspecified Status: Acute Assessment and Plan: improvement noted creatinine appears to the peaked/plateaued at 7.5mg/dl history suggestive of volume depletion/dehydration diminished oral intake diarrhea diminished urine output likely worsened by NSAID use(?) other factors playing a role: infection (pneumonia +/- UTI) gallstones early sepsis (and possible ATN) evauation to date: CPK okay CT of abdomen/renal ultrasound wtihout obstruction urine eosinophils negative urine electrolytes prerenal She has been getting some IV fluids. Her creatinine level has improved dramatically. She is still not eating so will continue fluids for 1 more day. Will reduce rate however because of trace edema and the high blood pressure. Check a creatinine tomorrow (2) Chronic kidney disease, stage IV (severe): Code(s): N18.4 - Chronic kidney disease, stage 4 (severe) Status: Chronic Assessment and Plan: last creatinine ~ 1.8mg/dl in March 2022 presumably secondary to hypertension, vascular disease, and age (3) Aspiration pneumonia: Code(s): J69.0 - Pneumonitis due to inhalation of food and vomit Status: Acute Assessment and Plan: as suggested by admission imaging and history on a Zithromax in and Flagyl. Blood cultures negative so far (4) Choledocholithiasis: Code(s): K80.50 - Calculus of bile duct without cholangitis or cholecystitis without obstruction Status: Acute Assessment and Plan: present on admission CT of abdomen AST and ALT are both normal now. Bilirubin is improving. Gastroenterology following (5) Hypertension: Code(s): I10 - Essential (primary) hypertension Status: Chronic Assessment and Plan: Blood pressure is high now. She is on no blood pressure meds right now. Will restart labetalol [id number] twice a day. Increase dose tomorrow if things are not better. (6) Chronic pain syndrome: Code(s): G89.4 - Chronic pain syndrome Status: Chronic Assessment and Plan: follows with pain management Subjective Date/time seen: 04/27/23 15:07 Interval history: Patient is comfortable sitting up in a chair. Not eating very well. Daughter and family are in the room. Exam Narrative: General: frail and elderly female in NAD Heart: normal S1 and S2; no rub or gallop Lungs: Fairly clear, decreased breath sounds at the bases. Abdomen: soft, nontender, nondistended, positive bowel sounds Extremities: no cyanosis or clubbing; trace bilateral edema Skin: no rash or subQ nodules Objective Data Vital Signs Vital Signs: Vital Signs - 24 hr 04/26/23 16:00 04/26/23 21:41 04/26/23 20:00 Temperature 98.7 F Pulse Rate 107 H 91 91 Respiratory Rate 18 18 Blood Pressure 148/77 H Pulse Oximetry 95 95 Oxygen Delivery Room Air Fraction of Inspired Oxygen 24 04/26/23 20:00 04/27/23 00:00 04/27/23 05:26 Temperature 99.3 F Pulse Rate 85 81 84 Respiratory Rate 16 Blood Pressure 166/69 H Pulse Oximetry 91 Oxygen Delivery Fraction of Inspired Oxygen 04/27/23 04:00 04/27/23 08:00 04/27/23 08:00 Temperature Pulse Rate 85 88 Respiratory Rate Blood Pressure Pulse Oximetry Oxygen Delivery Room Air Fraction of Inspired Oxygen 04/27/23 12:00 04/27/23 14:00 Temperature 98.8 F Pulse Rate 92 82 Respiratory Rate 12 Blood Pressure 181/69 H Pulse Oximetry 93 Oxygen Delivery Fraction of Inspired Oxygen Intake/Output Intake/Output: Intake & Output 04/24/23 04/25/23 04/26/23 04/27/23 23:59 23:59 23:59 23:59 Intake Total 3640 2600 3740 2730 Output Total 843 084 4223 1000 Balance 2720 1875 2165 1730 Meds/Results Medications: Active Medications Generic Name Dose Route Start La
[2023-04-27] MEDS: SODIUM CHLORIDE 0.9% IV 1,000 ML 75 ML IV CONT (15:20)
[2023-04-27] MEDS: AZITHROMYCIN 250 MG TABLET 500 MG PO (17:18)
[2023-04-27] MEDS: LABETALOL HCL 100 MG TABLET 200 MG PO (20:19)
[2023-04-27 22:37] LABS: Potassium 3.3 mmol/L (3.4-5.0)
[2023-04-28] VITALS (10 sets, daily range): BP systolic 139–163; BP diastolic 66–86; PULSE 71–91; RESP 18–20; TEMP 36.6–37.4; O2SAT 90–92
[2023-04-28] MEDS: metroNIDAZOLE 500 MG/ISO 100ML 500 MG/100 ML BAG 100 MG IVPB ×3 (00:23→16:49)
[2023-04-28] MEDS: MORPHINE SULFATE (*CRX) 2 MG/ML INJ 1 MG IV PUSH ×4 (01:29→19:40)
[2023-04-28 06:11] LABS: Basophils Percent Auto 0.3 % (0.2-1.2); Eosinophils Absolute Auto 0.2 K/mm3 (0-0.3); Eosinophils Percent Auto 1.7 % (0-4.4); Hematocrit 25.6 % (37.0-47.0); Hemoglobin 8.2 g/dL (12.0-15.0); Immature Granulocyte Absolute 0.14 K/mm3 (0.00-0.031); Immature Granulocyte Percent A 1.2 % (0-0.5); Lymphocytes Absolute Auto 3.66 K/mm3 (0.9-3.2); Lymphocytes Percent Auto 30.9 % (18.3-44.2); Mean Corpuscular Hemoglobin 30.7 pg (26-34); Mean Corpuscular Volume 95.9 fl (80-100); Mean Platelet Volume 10.4 fl (7.4-10.4); Monocytes Absolute Auto 0.8 K/mm3 (0.1-0.6); Monocytes Percent Auto 6.5 % (2.6-8.5); Neutrophils Percent Auto 59.4 % (45.5-73.1); Platelet Count Result 251 k/mm3 (150-375); Red Blood Count 2.67 M/mm3 (4.2-5.4); Red Cell Distribution Width 13.3 % (11.5-14.5); White Blood Count 11.8 K/mm3 (4.5-10.0)
[2023-04-28 06:19] LABS: Alanine Aminotransferase 22 U/L (6-35); Albumin Level 2.4 g/dL (3.5-5.1); Alkaline Phosphatase 264 U/L (38-126); Anion Gap 5 mmol/L (8-16); Aspartate Amino Transferase 33 U/L (14-36); Bilirubin,Total 1.4 mg/dL (0.2-1.3); Blood Urea Nitrogen 43 mg/dL (7-17); Calcium 6.9 mg/dL (8.4-10.2); Carbon Dioxide 33 mmol/L (22-30); Chloride 100 mmol/L (98-107); Estimated CRCL calculation 19 ml/min; Estimated Glomerular Filt Rate 25; Glucose 94 mg/dL (65-110); Phosphorus 3.2 mg/dL (2.5-4.5); Potassium 3.2 mmol/L (3.4-5.0); Sodium 138 mmol/L (137-145)
[2023-04-28] MEDS: PANTOPRAZOLE SODIUM IV 40 MG VIAL IV PUSH (08:11)
[2023-04-28] MEDS: DULoxetine HCL 60 MG CAPSULE.DR PO (08:11)
[2023-04-28] MEDS: LABETALOL HCL 100 MG TABLET 200 MG PO ×2 (08:11→21:19)
[2023-04-28] MEDS: levETIRAcetam 500MG/NACL 100ML 500 MG/100 ML BAG 400 MG IVPB ×2 (09:54→21:19)
[2023-04-28] MEDS: PROCHLORPERAZINE EDISYLATE 10 MG/2 ML VIAL IV PUSH ×2 (09:54→16:50)
[2023-04-28] MEDS: POTASSIUM CHLORIDE 20 MEQ PACKET (FOR LIQUID) PO (09:54)
--- NOTE | 2023-04-28 11:56 | PM.IMPN ---
Progress Note: A&P Assessment and Plan (1) Acute on chronic kidney failure: Code(s): N17.9 - Acute kidney failure, unspecified; N18.9 - Chronic kidney disease, unspecified Status: Acute Assessment and Plan: cr elevated Appreciate Nephrology input Kidney function is improving. (2) Aspiration pneumonia: Code(s): J69.0 - Pneumonitis due to inhalation of food and vomit Status: Acute Assessment and Plan: continue iv abx resp status ok Will recheck chest x-ray. (3) Choledocholithiasis: Code(s): K80.50 - Calculus of bile duct without cholangitis or cholecystitis without obstruction Status: Acute Assessment and Plan: iv abx appreciate gi input plan ercp at some point (4) Transaminitis: Code(s): R74.01 - Elevation of levels of liver transaminase levels Status: Acute (5) Diarrhea: Code(s): R19.7 - Diarrhea, unspecified Status: Acute Assessment and Plan: monitor (6) Chronic pain syndrome: Code(s): G89.4 - Chronic pain syndrome Status: Chronic (7) Chronic prescription opiate use: Code(s): Z79.891 - [facility] (current) use of opiate analgesic Status: Acute (8) Abnormal urinalysis: Code(s): R82.90 - Unspecified abnormal findings in urine Status: Acute (9) Cardiomegaly: Code(s): I51.7 - Cardiomegaly Status: Acute Subjective Date/time seen: 04/28/23 11:56 Interval history: Having some mild nausea this. Labs noted. Exam Narrative: Chest - bibasilar R>L inspiratory crackles. CV - RRR S1/S2; Tele showing no acute dysrhythmias Abd - Soft, NT/ND, Positive BS. Fecal containment system is in place with small amount of brown stool in bag. - Foely secured with small amount of dark yellow urine in bag Ext - No pedal edema Neuro - awake. mumbles answers to questions. 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 Dorsi and plantar flexion intact and equal Skin - Warm and dry Objective Data Vital Signs Vital Signs: Vital Signs - 24 hr 04/27/23 12:00 04/27/23 14:00 04/27/23 16:00 Temperature 98.8 F Pulse Rate 92 82 84 Respiratory Rate 12 Blood Pressure 181/69 H Pulse Oximetry 93 Oxygen Delivery Fraction of Inspired Oxygen 04/27/23 20:19 04/27/23 20:46 04/27/23 20:00 Temperature 98.8 F Pulse Rate 107 H 99 Respiratory Rate 20 Blood Pressure 153/91 H Pulse Oximetry 95 Oxygen Delivery Room Air Fraction of Inspired Oxygen 04/27/23 21:21 04/28/23 05:46 04/27/23 20:00 Temperature 97.9 F Pulse Rate 99 88 105 H Respiratory Rate 19 18 Blood Pressure 151/72 H Pulse Oximetry 95 90 Oxygen Delivery Room Air Fraction of Inspired Oxygen 21 04/28/23 00:00 04/28/23 04:00 04/28/23 08:11 Temperature Pulse Rate 82 71 80 Respiratory Rate Blood Pressure Pulse Oximetry Oxygen Delivery Fraction of Inspired Oxygen 04/28/23 08:25 04/28/23 08:00 Temperature Pulse Rate 84 Respiratory Rate Blood Pressure Pulse Oximetry Oxygen Delivery Room Air Fraction of Inspired Oxygen Intake/Output Intake/Output: Intake & Output 04/25/23 04/26/23 04/27/23 04/28/23 23:59 23:59 23:59 23:59 Intake Total 2600 3740 3220 500 Output Total 725 1575 1450 600 Balance 1875 2165 1770 -100 Meds/Results Medications: Active Medications Generic Name Dose Route Start Last Admin Trade Name Freq PRN Reason Stop Dose Admin Duloxetine HCl 60 mg 04/24/23 09:00 04/28/23 08:11 Duloxetine Hcl 60 Mg Capsule. PO 60 mg DAILY SIOMARA Administration Ceftriaxone Sodium 1 gm in 50 mls @ 100 mls/hr 04/23/23 16:00 04/27/23 15:55 Rocephin 1 Gm/Ns 50 Ml IVPB Infused Q24H SIOMARA Infusion Metronidazole 500 mg in 100 mls @ 100 mls/hr 04/23/23 01:00 04/28/23 09:15 Flagyl 500 Mg/Iso Soln 100 Ml IVPB Infused Q8H SIOMARA Infusion Levetiracetam 500 mg in 100 mls @ 400 mls/hr 04/23/23 10:00 04/28/23 10:12
--- NOTE | 2023-04-28 13:40 | P.PNNP_ITS ---
Progress Note: A&P Assessment and Plan (1) KWADWO (acute kidney injury): Code(s): N17.9 - Acute kidney failure, unspecified Status: Acute Assessment and Plan: * improvement noted * creatinine appears to the peaked/plateaued at 7.5mg/dl * history suggestive of volume depletion/dehydration * diminished oral intake * diarrhea * diminished urine output * likely worsened by NSAID use(?) * other factors playing a role: * infection (pneumonia +/- UTI) * gallstones * early sepsis (and possible ATN) * evauation to date: * CPK okay * CT of abdomen/renal ultrasound wtihout obstruction * urine eosinophils negative * urine electrolytes prerenal * She has been getting some IV fluids. * Her creatinine level has improved again to 1.9. * She is still not eating . She was nauseated this morning so did not eat breakfast. * No signs of fluid overload. * Check a creatinine tomorrow (2) Chronic kidney disease, stage IV (severe): Code(s): N18.4 - Chronic kidney disease, stage 4 (severe) Status: Chronic Assessment and Plan: * last creatinine ~ 1.8mg/dl in March 2022 * presumably secondary to hypertension, vascular disease, and age (3) Aspiration pneumonia: Code(s): J69.0 - Pneumonitis due to inhalation of food and vomit Status: Acute Assessment and Plan: * as suggested by admission imaging and history * on a Zithromax and Flagyl. * Blood cultures negative so far (4) Choledocholithiasis: Code(s): K80.50 - Calculus of bile duct without cholangitis or cholecystitis without obstruction Status: Acute Assessment and Plan: * present on admission CT of abdomen * AST and ALT are both normal now. Bilirubin is improving. * Gastroenterology following (5) Hypertension: Code(s): I10 - Essential (primary) hypertension Status: Chronic Assessment and Plan: * Blood pressure Seems a bit better in the 150s today. * She is on no blood pressure meds right now. * On labetalol at 200mg twice a day. (6) Chronic pain syndrome: Code(s): G89.4 - Chronic pain syndrome Status: Chronic Assessment and Plan: * follows with pain management Subjective Date/time seen: 04/28/23 13:40 Interval history: Patient is lying in bed. Not eating very well. Another daughter is in the room. We discussed the case. Exam Narrative: General: frail and elderly female in NAD Heart: normal S1 and S2; no rub Lungs: Fairly clear, decreased breath sounds at the bases. Abdomen: soft, nontender, nondistended, positive bowel sounds Extremities: trace bilateral edema Skin: no rash Objective Data Vital Signs Vital Signs: Vital Signs - 24 hr 04/27/23 14:00 04/27/23 16:00 04/27/23 20:19 Temperature 98.8 F Pulse Rate 82 84 107 H Respiratory Rate 12 Blood Pressure 181/69 H Pulse Oximetry 93 Oxygen Delivery Fraction of Inspired Oxygen 04/27/23 20:46 04/27/23 20:00 04/27/23 21:21 Temperature 98.8 F Pulse Rate 99 99 Respiratory Rate 20 19 Blood Pressure 153/91 H Pulse Oximetry 95 95 Oxygen Delivery Room Air Room Air Fraction of Inspired Oxygen 04/28/23 05:46 04/27/23 20:00 07/
--- NOTE | 2023-04-28 13:40 | PM.PNNEP ---
Progress Note: A&P Assessment and Plan (1) KWADWO (acute kidney injury): Code(s): N17.9 - Acute kidney failure, unspecified Status: Acute Assessment and Plan: improvement noted creatinine appears to the peaked/plateaued at 7.5mg/dl history suggestive of volume depletion/dehydration diminished oral intake diarrhea diminished urine output likely worsened by NSAID use(?) other factors playing a role: infection (pneumonia +/- UTI) gallstones early sepsis (and possible ATN) evauation to date: CPK okay CT of abdomen/renal ultrasound wtihout obstruction urine eosinophils negative urine electrolytes prerenal She has been getting some IV fluids. Her creatinine level has improved again to 1.9. She is still not eating . She was nauseated this morning so did not eat breakfast. No signs of fluid overload. Check a creatinine tomorrow (2) Chronic kidney disease, stage IV (severe): Code(s): N18.4 - Chronic kidney disease, stage 4 (severe) Status: Chronic Assessment and Plan: last creatinine ~ 1.8mg/dl in March 2022 presumably secondary to hypertension, vascular disease, and age (3) Aspiration pneumonia: Code(s): J69.0 - Pneumonitis due to inhalation of food and vomit Status: Acute Assessment and Plan: as suggested by admission imaging and history on a Zithromax and Flagyl. Blood cultures negative so far (4) Choledocholithiasis: Code(s): K80.50 - Calculus of bile duct without cholangitis or cholecystitis without obstruction Status: Acute Assessment and Plan: present on admission CT of abdomen AST and ALT are both normal now. Bilirubin is improving. Gastroenterology following (5) Hypertension: Code(s): I10 - Essential (primary) hypertension Status: Chronic Assessment and Plan: Blood pressure Seems a bit better in the 150s today. She is on no blood pressure meds right now. On labetalol at 200mg twice a day. (6) Chronic pain syndrome: Code(s): G89.4 - Chronic pain syndrome Status: Chronic Assessment and Plan: follows with pain management Subjective Date/time seen: 04/28/23 13:40 Interval history: Patient is lying in bed. Not eating very well. Another daughter is in the room. We discussed the case. Exam Narrative: General: frail and elderly female in NAD Heart: normal S1 and S2; no rub Lungs: Fairly clear, decreased breath sounds at the bases. Abdomen: soft, nontender, nondistended, positive bowel sounds Extremities: trace bilateral edema Skin: no rash Objective Data Vital Signs Vital Signs: Vital Signs - 24 hr 04/27/23 14:00 04/27/23 16:00 04/27/23 20:19 Temperature 98.8 F Pulse Rate 82 84 107 H Respiratory Rate 12 Blood Pressure 181/69 H Pulse Oximetry 93 Oxygen Delivery Fraction of Inspired Oxygen 04/27/23 20:46 04/27/23 20:00 04/27/23 21:21 Temperature 98.8 F Pulse Rate 99 99 Respiratory Rate 20 19 Blood Pressure 153/91 H Pulse Oximetry 95 95 Oxygen Delivery Room Air Room Air Fraction of Inspired Oxygen 04/28/23 05:46 04/27/23 20:00 04/28/23 00:00 Temperature 97.9 F Pulse Rate 88 105 H 82 Respiratory Rate 18 Blood Pressure 151/72 H Pulse Oximetry 90 Oxygen Delivery Fraction of Inspired Oxygen 04/28/23 04:00 04/28/23 08:11 04/28/23 08:25 Temperature Pulse Rate 71 80 Respiratory Rate Blood Pressure Pulse Oximetry Oxygen Delivery Room Air Fraction of Inspired Oxygen 04/28/23 08:00 Temperature Pulse Rate 84 Respiratory Rate Blood Pressure Pulse Oximetry Oxygen Delivery Fraction of Inspired Oxygen Intake/Output Intake/Output: Intake & Output 04/25/23 04/26/23 04/27/23 04/28/23 23:59 23:59 23:59 23:59 Intake Total 2600 3740 3220 676 Output Total 725 1575 1450 600 Balance 1875 2165 1770 76 Meds/Resu
[2023-04-28] MEDS: SALINE LOCK FLUSH 10 ML IV PUSH (21:20)
[2023-04-28] MEDS: LIDOCAINE 5% PATCH 1 PATCH TRANSDERM (22:02)
[2023-04-29] VITALS (16 sets, daily range): BP systolic 124–166; BP diastolic 55–83; PULSE 74–100; RESP 16–23; TEMP 36.2–37.1; O2SAT 90–98
[2023-04-29] MEDS: MORPHINE SULFATE (*CRX) 2 MG/ML INJ 1 MG IV PUSH ×4 (00:21→21:53)
[2023-04-29] MEDS: metroNIDAZOLE 500 MG/ISO 100ML 500 MG/100 ML BAG 100 MG IVPB ×3 (00:25→16:33)
[2023-04-29] MEDS: SODIUM CHLORIDE 0.9% IV 1,000 ML 50 ML IV CONT (00:26)
[2023-04-29 04:34] LABS: Legionella pneumophila Ag Ur Not Detected (Not Detected)
[2023-04-29] MEDS: SALINE LOCK FLUSH 20 ML IV PUSH (05:13)
[2023-04-29 05:58] LABS: Basophils Percent Auto 0.3 % (0.2-1.2); Eosinophils Absolute Auto 0.1 K/mm3 (0-0.3); Eosinophils Percent Auto 0.6 % (0-4.4); Hematocrit 23.9 % (37.0-47.0); Hemoglobin 7.9 g/dL (12.0-15.0); Immature Granulocyte Absolute 0.14 K/mm3 (0.00-0.031); Immature Granulocyte Percent A 1.2 % (0-0.5); Lymphocytes Absolute Auto 2.97 K/mm3 (0.9-3.2); Lymphocytes Percent Auto 25.8 % (18.3-44.2); Mean Corpuscular HGB Conc 33.1 g/dl (32-36); Mean Corpuscular Hemoglobin 32.1 pg (26-34); Mean Corpuscular Volume 97.2 fl (80-100); Mean Platelet Volume 10.2 fl (7.4-10.4); Monocytes Absolute Auto 0.7 K/mm3 (0.1-0.6); Monocytes Percent Auto 5.8 % (2.6-8.5); Neutrophils Absolute Auto 7.6 K/mm3 (1.3-6.7); Neutrophils Percent Auto 66.3 % (45.5-73.1); Platelet Count Result 259 k/mm3 (150-375); Red Blood Count 2.46 M/mm3 (4.2-5.4); Red Cell Distribution Width 13.7 % (11.5-14.5); White Blood Count 11.5 K/mm3 (4.5-10.0)
[2023-04-29 06:10] LABS: Alanine Aminotransferase 26 U/L (6-35); Albumin Level 2.3 g/dL (3.5-5.1); Alkaline Phosphatase 395 U/L (38-126); Anion Gap 4 mmol/L (8-16); Aspartate Amino Transferase 68 U/L (14-36); Bilirubin,Total 3.1 mg/dL (0.2-1.3); Blood Urea Nitrogen 35 mg/dL (7-17); Calcium 6.7 mg/dL (8.4-10.2); Carbon Dioxide 33 mmol/L (22-30); Chloride 102 mmol/L (98-107); Estimated CRCL calculation 22 ml/min; Estimated Glomerular Filt Rate 31; Glucose 97 mg/dL (65-110); Phosphorus 2.9 mg/dL (2.5-4.5); Potassium 3.1 mmol/L (3.4-5.0); Sodium 139 mmol/L (137-145)
[2023-04-29] MEDS: DULoxetine HCL 60 MG CAPSULE.DR PO (08:36)
[2023-04-29] MEDS: LABETALOL HCL 100 MG TABLET 200 MG PO ×2 (08:36→20:49)
[2023-04-29] MEDS: PANTOPRAZOLE SODIUM IV 40 MG VIAL IV PUSH (08:36)
[2023-04-29] MEDS: levETIRAcetam 500MG/NACL 100ML 500 MG/100 ML BAG 400 MG IVPB ×2 (09:41→20:49)
--- NOTE | 2023-04-29 10:09 | PCPTNOTE ---
On 04/29/23, the student, JODY Collins, provided care and completed [facility] documentation on this patient. I have reviewed the student's documentation and agree with the findings.
--- NOTE | 2023-04-29 10:45 | PM.PNNEP ---
Progress Note: A&P Assessment and Plan (1) KWADWO (acute kidney injury): Code(s): N17.9 - Acute kidney failure, unspecified Status: Acute Assessment and Plan: improvement noted (if not back to baseline) creatinine appears to the peaked/plateaued at 7.5mg/dl history suggestive of volume depletion/dehydration diminished oral intake diarrhea diminished urine output likely worsened by NSAID use(?) other factors playing a role: infection (pneumonia +/- UTI) gallstones early sepsis (and possible ATN) evauation to date: CPK okay CT of abdomen/renal ultrasound wtihout obstruction urine eosinophils negative urine electrolytes prerenal follow trend of repeat labs and UOP (2) Chronic kidney disease, stage IV (severe): Code(s): N18.4 - Chronic kidney disease, stage 4 (severe) Status: Chronic Assessment and Plan: last creatinine ~ 1.8mg/dl in March 2022 presumably secondary to hypertension, vascular disease, and age (3) Aspiration pneumonia: Code(s): J69.0 - Pneumonitis due to inhalation of food and vomit Status: Acute Assessment and Plan: as suggested by admission imaging and history on a Zithromax and Flagyl blood cultures negative so far (4) Choledocholithiasis: Code(s): K80.50 - Calculus of bile duct without cholangitis or cholecystitis without obstruction Status: Acute Assessment and Plan: present on admission CT of abdomen AST and ALT are both normal now and bilirubin is improving Gastroenterology following ERCP today (5) Hypertension: Code(s): I10 - Essential (primary) hypertension Status: Chronic Assessment and Plan: blood pressure fluctuating on labetalol follow trend of hemodynamics (6) Chronic pain syndrome: Code(s): G89.4 - Chronic pain syndrome Status: Chronic Assessment and Plan: follows with pain management Will continue to follow. Subjective Date/time seen: 04/29/23 10:45 Interval history: Follow-up for acute kidney injury/acute renal failure on chronic kidney disease. Chart reviewed since last seen; renal function continues to improve (if not back to baseline) with current interventions; suboptimal oral intake noted; just about to leave for ERCP; no other new issues/events overnight or earlier this morning. Exam Narrative: General: frail and elderly female in NAD Heart: normal S1 and S2; no rub Lungs: decreased breath sounds at the bases Abdomen: soft, nontender, nondistended, positive bowel sounds Extremities: trace bilateral edema Skin: no nodules Objective Data Vital Signs Vital Signs: Vital Signs Temp Pulse Resp BP Pulse Ox O2 Del Method 04/29/23 08:00 100 04/29/23 08:00 Room Air 04/29/23 04:00 78 04/29/23 00:00 96 04/29/23 06:00 97.2 F L 86 20 166/83 H 90 04/28/23 20:00 91 04/28/23 21:19 91 04/28/23 21:14 99.3 F 91 18 163/86 H 92 04/28/23 16:00 81 04/28/23 14:00 98.7 F 75 20 139/66 92 Intake/Output Intake/Output: Intake & Output 04/26/23 04/27/23 04/28/23 04/29/23 23:59 23:59 23:59 23:59 Intake Total 3740 3220 2166 425 Output Total 1575 1450 1250 525 Balance 2165 1770 916 -100 Meds/Results Medications: Active Medications Generic Name Dose Route Start Last Admin Trade Name Freq PRN Reason Stop Dose Admin Duloxetine HCl 60 mg 04/24/23 09:00 04/29/23 08:36 Duloxetine Hcl 60 Mg Capsule.Dr PO 60 mg DAILY SIOMARA Administration Ceftriaxone Sodium 1 gm in 50 mls @ 100 mls/hr 04/23/23 16:00 04/28/23 17:37 Rocephin 1 Gm/Ns 50 Ml IVPB Infused Q24H SIOMARA Infusion Metronidazole 500 mg in 100 mls @ 100 mls/hr 04/23/23 01:00 04/29/23 09:35 Flagyl 500 Mg/Iso Soln 100 Ml IVPB Infused Q8H SIOMARA Infusion Levetiracetam 500 mg in 100 mls @ 400 mls/hr 04/23/23 10:00 04/29/23 09:56 Keppra Iv IVPB
--- NOTE | 2023-04-29 10:45 | P.PNNP_ITS ---
Progress Note: A&P Assessment and Plan (1) KWADWO (acute kidney injury): Code(s): N17.9 - Acute kidney failure, unspecified Status: Acute Assessment and Plan: * improvement noted (if not back to baseline) * creatinine appears to the peaked/plateaued at 7.5mg/dl * history suggestive of volume depletion/dehydration * diminished oral intake * diarrhea * diminished urine output * likely worsened by NSAID use(?) * other factors playing a role: * infection (pneumonia +/- UTI) * gallstones * early sepsis (and possible ATN) * evauation to date: * CPK okay * CT of abdomen/renal ultrasound wtihout obstruction * urine eosinophils negative * urine electrolytes prerenal * follow trend of repeat labs and UOP (2) Chronic kidney disease, stage IV (severe): Code(s): N18.4 - Chronic kidney disease, stage 4 (severe) Status: Chronic Assessment and Plan: * last creatinine ~ 1.8mg/dl in March 2022 * presumably secondary to hypertension, vascular disease, and age (3) Aspiration pneumonia: Code(s): J69.0 - Pneumonitis due to inhalation of food and vomit Status: Acute Assessment and Plan: * as suggested by admission imaging and history * on a Zithromax and Flagyl * blood cultures negative so far (4) Choledocholithiasis: Code(s): K80.50 - Calculus of bile duct without cholangitis or cholecystitis without obstruction Status: Acute Assessment and Plan: * present on admission CT of abdomen * AST and ALT are both normal now and bilirubin is improving * Gastroenterology following * ERCP today (5) Hypertension: Code(s): I10 - Essential (primary) hypertension Status: Chronic Assessment and Plan: * blood pressure fluctuating * on labetalol * follow trend of hemodynamics (6) Chronic pain syndrome: Code(s): G89.4 - Chronic pain syndrome Status: Chronic Assessment and Plan: * follows with pain management Will continue to follow. Subjective Date/time seen: 04/29/23 10:45 Interval history: Follow-up for acute kidney injury/acute renal failure on chronic kidney disease. Chart reviewed since last seen; renal function continues to improve (if not back to baseline) with current interventions; suboptimal oral intake noted; just about to leave for ERCP; no other new issues/events overnight or earlier this morning. Exam Narrative: General: frail and elderly female in NAD Heart: normal S1 and S2; no rub Lungs: decreased breath sounds at the bases Abdomen: soft, nontender, nondistended, positive bowel sounds Extremities: trace bilateral edema Skin: no nodules Objective Data Vital Signs Vital Signs: Vital Signs Temp Pulse Resp BP Pulse Ox O2 Del Method 04/29/23 08:00 100 04/29/23 08:00 Room Air 04/29/23 04:00 78 04/29/23 00:00 96 04/29/23 06:00 97.2 F L 86 20 166/83 H 90 04/28/23 20:00 91 04/28/23 21:19 91 04/28/23 21:14 99.3 F 91 18 163/86 H 92 04/28/23 16:00 81 04/28/23 14:00 98.7 F 75 20 139/66 92 Intake/Output Intake/Output: Intake & Output 04/26/23 04/27/23 04/28/23 04/29/23 23:59 23:59 23:59 23:59
--- NOTE | 2023-04-29 11:03 | PC.NURSE ---
Patient to ERCP via stretcher.
--- NOTE | 2023-04-29 11:15 | PCOTNOTE ---
Patient out of the room at this time. Patient went down to have an ERCP test done.
[2023-04-29] MEDS: LACTATED RINGERS 1,000 ML 150 ML IV CONT (11:25)
--- NOTE | 2023-04-29 11:52 | WPDANESEPPF ---
Anes - Initial Pre Proc Eval Procedure: Operation Date: 04/29/23 14:15 Proposed Procedures p Endoscopic Retro Cholangiopancreatogram - Akbar Briggs MD Date/Time: 04/29/23 11:52 Surgeon: Sancho Orozco MD Pre Op Diagnosis: KWADWO/Pneumonia/Choledocholithiasis Patient Data Age: 78 Gender: F Height: 1.55 m Weight: 64 kg Last Vital Signs Temp 97.5 F L 04/29/23 11:28 Pulse 81 04/29/23 11:28 Resp 20 04/29/23 11:28 BP 124/74 04/29/23 11:28 Pulse Ox 92 04/29/23 11:28 O2 Del Method Nasal Cannula 04/29/23 11:28 O2 Flow Rate 2 04/29/23 11:28 FiO2 21 04/27/23 21:21 Allergies Allergy/AdvReac Type Severity Reaction Status Date / Time cyclobenzaprine Allergy Unknown Unknown Verified 04/29/23 11:26 irbesartan Allergy Unknown Unknown Verified 04/29/23 11:26 pregabalin Allergy Unknown Unknown Verified 04/29/23 11:26 propoxyphene Allergy Unknown Unknown Verified 04/29/23 11:26 Sulfa (Sulfonamide Allergy Unknown Unknown Verified 04/29/23 11:26 Antibiotics) valsartan Allergy Unknown Unknown Verified 04/29/23 11:26 Home Medications Medication Instructions Recorded Confirmed Type levetiracetam 500 mg tablet 500 mg PO Q12H 02/26/20 04/22/23 History aspirin 81 mg chewable tablet 81 mg PO DAILY 04/27/21 04/22/23 History (Annita Chewable Low Dose Aspirin) hydrocodone 7.5 mg-acetaminophen 1 tablet PO BID 04/12/22 04/22/23 History 500 mg tablet labetalol 200 mg tablet 400 mg PO Q12H #360 tabs 09/09/22 04/22/23 Rx duloxetine 60 mg capsule,delayed 60 mg PO DAILY #30 caps 10/31/22 04/22/23 Rx release diphenoxylate-atropine 2.5 1 tablet PO TID PRN diarrhea #30 02/04/23 04/22/23 Rx mg-0.025 mg tablet (Lomotil) tabs meloxicam 15 mg tablet 15 mg PO DAILY 04/22/23 04/22/23 History mirabegron 25 mg tablet,extended 25 mg PO DAILY 04/22/23 04/22/23 History release 24 hr (Myrbetriq) morphine 15 mg tablet,extended 15 mg PO BID 04/22/23 04/22/23 History release Laboratory Tests 04/23/23 04/29/23 00:38 05:47 WBC 11.5 H K/mm3 (4.5-10.0) RBC 2.46 L M/mm3 (4.2-5.4) Hgb 7.9 L g/dL (12.0-15.0) Hct 23.9 L % (37.0-47.0) MCV 97.2 fl (80-100) MCH 32.1 pg (26-34) MCHC 33.1 g/dl (32-36) RDW 13.7 % (11.5-14.5) Plt Count 259 k/mm3 (150-375) MPV 10.2 fl (7.4-10.4) Immature Gran % (Auto) 1.2 H % (0-0.5) Neut % (Auto) 66.3 % (45.5-73.1) Lymph % (Auto) 25.8 % (18.3-44.2) [place] % (Auto) 5.8 % (2.6-8.5) Eos % (Auto) 0.6 % (0-4.4) Baso % (Auto) 0.3 % (0.2-1.2) Lymph # (Auto) 2.97 K/mm3 (0.9-3.2) [place] # (Auto) 0.7 H K/mm3 (0.1-0.6) Eos # (Auto) 0.1 K/mm3 (0-0.3) Baso # (Auto) 0.0 K/mm3 (0.0-0.1) Abs Immat Gran (auto) 0.14 H K/mm3 (0.00-0.031) Absolute Neuts (auto) 7.6 H K/mm3 (1.3-6.7) Absolute Nucleated RBC 0.0 K/mm3 (0.0-0.012) Nucleated RBC % 0.0 % (0.0-0.2) Sodium 139 mmol/L (137-145) Potassium 3.1 L mmol/L (3.4-5.0) Chloride 102 mmol/L (98-107) Carbon Dioxide 33 H mmol/L (22-30) Anion Gap 4 L mmol/L (8-16) BUN 35 H mg/dL (7-17) Creatinine 1.60 H mg/dL (0.7-1.0) Estim Creat Clear Calc 22 ml/min Estimated GFR 31 L (59 - ) Glucose 97 mg/dL (65-110) Calcium 6.7 L mg/dL (8.4-10.2) Phosphorus 2.9 mg/dL (2.5-4.5) Total Bilirubin 3.1 H mg/dL (0.2-1.3) AST 68 H U/L (14-36) ALT 26 U/L (6-35) Alkaline Phosphatase 395 H U/L (38-126) Total Protein 6.0 L g/dL (6.3-8.2) Albumin 2.3 L g/dL (3.5-5.1) Ur L.pneumophila Ag Not detected (Not Detected) Patient hx anesthesia problems: none Family hx anesthesia problems: none Results Review: All pre-operative results and documents have been reviewed as part of the pre-
--- NOTE | 2023-04-29 12:09 | PM.IMPN ---
Progress Note: A&P Assessment and Plan (1) Acute on chronic kidney failure: Code(s): N17.9 - Acute kidney failure, unspecified; N18.9 - Chronic kidney disease, unspecified Status: Acute Assessment and Plan: cr elevated Appreciate Nephrology input Kidney function is improving. (2) Aspiration pneumonia: Code(s): J69.0 - Pneumonitis due to inhalation of food and vomit Status: Acute Assessment and Plan: continue iv abx resp status ok Will recheck chest x-ray. (3) Choledocholithiasis: Code(s): K80.50 - Calculus of bile duct without cholangitis or cholecystitis without obstruction Status: Acute Assessment and Plan: iv abx appreciate gi input plan ercp at some point (4) Transaminitis: Code(s): R74.01 - Elevation of levels of liver transaminase levels Status: Acute (5) Diarrhea: Code(s): R19.7 - Diarrhea, unspecified Status: Acute Assessment and Plan: monitor (6) Chronic pain syndrome: Code(s): G89.4 - Chronic pain syndrome Status: Chronic (7) Chronic prescription opiate use: Code(s): Z79.891 - half-way (current) use of opiate analgesic Status: Acute (8) Abnormal urinalysis: Code(s): R82.90 - Unspecified abnormal findings in urine Status: Acute (9) Cardiomegaly: Code(s): I51.7 - Cardiomegaly Status: Acute Subjective Date/time seen: 04/29/23 12:09 Interval history: No complaints Exam Narrative: Chest - bibasilar R>L inspiratory crackles. CV - RRR S1/S2; Tele showing no acute dysrhythmias Abd - Soft, NT/ND, Positive BS. Fecal containment system is in place with small amount of brown stool in bag. - Foely secured with small amount of dark yellow urine in bag Ext - No pedal edema Neuro - awake. mumbles answers to questions. Right clinical trials data coordinator slightly weaker thenleft. Dorsi and plantar flexion intact and equal Skin - Warm and dry Objective Data Vital Signs Vital Signs: Vital Signs - 24 hr 04/28/23 14:00 04/28/23 16:00 04/28/23 21:14 Temperature 98.7 F 99.3 F Pulse Rate 75 81 91 Respiratory Rate 20 18 Blood Pressure 139/66 163/86 H Pulse Oximetry 92 92 Oxygen Delivery Oxygen Flow Rate 04/28/23 21:19 04/28/23 20:00 04/29/23 06:00 Temperature 97.2 F L Pulse Rate 91 91 86 Respiratory Rate 20 Blood Pressure 166/83 H Pulse Oximetry 90 Oxygen Delivery Oxygen Flow Rate 04/29/23 00:00 04/29/23 04:00 04/29/23 08:00 Temperature Pulse Rate 96 78 Respiratory Rate Blood Pressure Pulse Oximetry Oxygen Delivery Room Air Oxygen Flow Rate 04/29/23 08:00 04/29/23 11:28 Temperature 97.5 F L Pulse Rate 100 81 Respiratory Rate 20 Blood Pressure 124/74 Pulse Oximetry 92 Oxygen Delivery Nasal Cannula Oxygen Flow Rate 2 Intake/Output Intake/Output: Intake & Output 04/26/23 04/27/23 04/28/23 04/29/23 23:59 23:59 23:59 23:59 Intake Total 3740 3220 2166 425 Output Total 1575 1450 1250 525 Balance 2165 1770 916 -100 Meds/Results Medications: Active Medications Generic Name Dose Route Start Last Admin Trade Name Freq PRN Reason Stop Dose Admin Duloxetine HCl 60 mg 04/24/23 09:00 04/29/23 08:36 Duloxetine Hcl 60 Mg Capsule.Dr PO 60 mg DAILY SIOMARA Administration Ceftriaxone Sodium 1 gm in 50 mls @ 100 mls/hr 04/23/23 16:00 04/28/23 17:37 Rocephin 1 Gm/Ns 50 Ml IVPB Infused Q24H SIOMARA Infusion Metronidazole 500 mg in 100 mls @ 100 mls/hr 04/23/23 01:00 04/29/23 09:35 Flagyl 500 Mg/Iso Soln 100 Ml IVPB Infused Q8H SIOMARA Infusion Levetiracetam 500 mg in 100 mls @ 400 mls/hr 04/23/23 10:00 04/29/23 09:56 Keppra Iv IVPB Infused Q12H SIOMARA Infusion Sodium Chloride 1,000 mls @ 0 mls/hr 04/27/23 14:55 04/29/23 00:26 Normal Saline Iv IV CONT 50 mls/hr .Q20H SIOMARA Administration KVO Lactated Ringer's 1,000 mls @ 150 mls/hr 04/29/23 11:25
--- NOTE | 2023-04-29 13:43 | PC.NURSE ---
Patient back from ERCP.
--- NOTE | 2023-04-29 14:10 | PCOTNOTE ---
Per Patient's daughter, Patient is still drowsy from the procedure this A.M. She stated, not today .
[2023-04-29] MEDS: SALINE LOCK FLUSH 10 ML IV PUSH ×2 (15:00→20:50)
[2023-04-29] MEDS: PROCHLORPERAZINE EDISYLATE 10 MG/2 ML VIAL IV PUSH (17:56)
[2023-04-30] VITALS (9 sets, daily range): BP systolic 133–180; BP diastolic 75–85; PULSE 80–83; RESP 16–24; TEMP 36.4–37.4; O2SAT 92–95
[2023-04-30] MEDS: metroNIDAZOLE 500 MG/ISO 100ML 500 MG/100 ML BAG 100 MG IVPB ×2 (01:29→08:18)
[2023-04-30] MEDS: SALINE LOCK FLUSH 10 ML IV PUSH ×3 (05:08→21:13)
[2023-04-30 05:22] LABS: Basophils Percent Auto 0.3 % (0.2-1.2); Eosinophils Absolute Auto 0.1 K/mm3 (0-0.3); Eosinophils Percent Auto 0.8 % (0-4.4); Hematocrit 25.1 % (37.0-47.0); Hemoglobin 8.2 g/dL (12.0-15.0); Immature Granulocyte Absolute 0.09 K/mm3 (0.00-0.031); Immature Granulocyte Percent A 0.8 % (0-0.5); Lymphocytes Absolute Auto 2.42 K/mm3 (0.9-3.2); Lymphocytes Percent Auto 20.5 % (18.3-44.2); Mean Corpuscular HGB Conc 32.7 g/dl (32-36); Mean Platelet Volume 10.2 fl (7.4-10.4); Monocytes Absolute Auto 0.8 K/mm3 (0.1-0.6); Monocytes Percent Auto 6.8 % (2.6-8.5); Neutrophils Absolute Auto 8.4 K/mm3 (1.3-6.7); Neutrophils Percent Auto 70.8 % (45.5-73.1); Platelet Count Result 275 k/mm3 (150-375); Red Blood Count 2.56 M/mm3 (4.2-5.4); Red Cell Distribution Width 14.1 % (11.5-14.5); White Blood Count 11.8 K/mm3 (4.5-10.0)
[2023-04-30 05:36] LABS: Alanine Aminotransferase 32 U/L (6-35); Albumin Level 2.6 g/dL (3.5-5.1); Alkaline Phosphatase 438 U/L (38-126); Anion Gap 5 mmol/L (8-16); Aspartate Amino Transferase 78 U/L (14-36); Bilirubin,Total 3.4 mg/dL (0.2-1.3); Blood Urea Nitrogen 28 mg/dL (7-17); Calcium 6.8 mg/dL (8.4-10.2); Carbon Dioxide 32 mmol/L (22-30); Chloride 104 mmol/L (98-107); Estimated CRCL calculation 23 ml/min; Estimated Glomerular Filt Rate 33; Glucose 94 mg/dL (65-110); Phosphorus 3.1 mg/dL (2.5-4.5); Sodium 141 mmol/L (137-145)
[2023-04-30] MEDS: LABETALOL HCL 100 MG TABLET 200 MG PO ×2 (08:08→21:12)
[2023-04-30] MEDS: DULoxetine HCL 60 MG CAPSULE.DR PO (08:08)
[2023-04-30] MEDS: PANTOPRAZOLE SODIUM IV 40 MG VIAL IV PUSH (08:08)
[2023-04-30] MEDS: levETIRAcetam 500MG/NACL 100ML 500 MG/100 ML BAG 400 MG IVPB ×2 (09:43→21:12)
--- NOTE | 2023-04-30 11:00 | P.PNNP_ITS ---
Progress Note: A&P Assessment and Plan (1) KWADWO (acute kidney injury): Code(s): N17.9 - Acute kidney failure, unspecified Status: Acute Assessment and Plan: * improvement noted (if not back to baseline) * creatinine appears to the peaked/plateaued at 7.5mg/dl * history suggestive of volume depletion/dehydration * diminished oral intake * diarrhea * diminished urine output * likely worsened by NSAID use(?) * other factors playing a role: * infection (pneumonia +/- UTI) * gallstones * early sepsis (and possible ATN) * evauation to date: * CPK okay * CT of abdomen/renal ultrasound wtihout obstruction * urine eosinophils negative * urine electrolytes prerenal * follow trend of repeat labs and UOP (2) Chronic kidney disease, stage IV (severe): Code(s): N18.4 - Chronic kidney disease, stage 4 (severe) Status: Chronic Assessment and Plan: * last creatinine ~ 1.8mg/dl in March 2022 * presumably secondary to hypertension, vascular disease, and age (3) Aspiration pneumonia: Code(s): J69.0 - Pneumonitis due to inhalation of food and vomit Status: Acute Assessment and Plan: * as suggested by admission imaging and history * on antibiotics * blood cultures negative so far (4) Choledocholithiasis: Code(s): K80.50 - Calculus of bile duct without cholangitis or cholecystitis without obstruction Status: Acute Assessment and Plan: * present on admission CT of abdomen * AST and ALT are both normal now and bilirubin is improving * Gastroenterology following * s/p ERCP (on 04/29/23) with results noted (5) Hypertension: Code(s): I10 - Essential (primary) hypertension Status: Chronic Assessment and Plan: * blood pressure fluctuating but better currently * follow trend of hemodynamics (6) Chronic pain syndrome: Code(s): G89.4 - Chronic pain syndrome Status: Chronic Assessment and Plan: * follows with pain management Will continue to follow. Subjective Date/time seen: 04/30/23 11:00 Interval history: Follow-up for acute kidney injury/acute renal failure on chronic kidney disease. Tolerated ERCP yesterday without any issue or problems; renal function improving/stabilizing by trend of labs with reasonable urine output; sitting up in chair in no apparent distress. Exam Narrative: General: frail and elderly female in NAD Heart: normal S1 and S2; no rub Lungs: decreased breath sounds at the bases Abdomen: soft, nontender, nondistended, positive bowel sounds Extremities: trace bilateral edema Skin: warm and dry Objective Data Vital Signs Vital Signs: Vital Signs Temp Pulse Resp BP Pulse Ox O2 Del Method O2 Flow Rate 04/30/23 08:24 92 Nasal Cannula 1 04/30/23 08:19 92 Nasal Cannula 1 04/30/23 08:08 80 04/30/23 06:00 98.6 F 81 20 133/80 92 04/29/23 20:49 88 04/29/23 20:39 98.8 F 90 20 132/61 94 04/29/23 16:00 74 04/29/23 14:40 97 04/29/23 13:47 97.8 F 76 22 H 143/65 H 94 04/29/23 13:28 82 22 H 141/61 H 92 Nasal Cannula 2 04/29/23 13:18 84 20 150/71 H 91 Nasal Cannula 2 04/29/23 13:08 82 20 137/55 L 92 Nasal Cannula 2 04/29/23 12:41 Sim
--- NOTE | 2023-04-30 11:00 | PM.PNNEP ---
Progress Note: A&P Assessment and Plan (1) KWADWO (acute kidney injury): Code(s): N17.9 - Acute kidney failure, unspecified Status: Acute Assessment and Plan: improvement noted (if not back to baseline) creatinine appears to the peaked/plateaued at 7.5mg/dl history suggestive of volume depletion/dehydration diminished oral intake diarrhea diminished urine output likely worsened by NSAID use(?) other factors playing a role: infection (pneumonia +/- UTI) gallstones early sepsis (and possible ATN) evauation to date: CPK okay CT of abdomen/renal ultrasound wtihout obstruction urine eosinophils negative urine electrolytes prerenal follow trend of repeat labs and UOP (2) Chronic kidney disease, stage IV (severe): Code(s): N18.4 - Chronic kidney disease, stage 4 (severe) Status: Chronic Assessment and Plan: last creatinine ~ 1.8mg/dl in March 2022 presumably secondary to hypertension, vascular disease, and age (3) Aspiration pneumonia: Code(s): J69.0 - Pneumonitis due to inhalation of food and vomit Status: Acute Assessment and Plan: as suggested by admission imaging and history on antibiotics blood cultures negative so far (4) Choledocholithiasis: Code(s): K80.50 - Calculus of bile duct without cholangitis or cholecystitis without obstruction Status: Acute Assessment and Plan: present on admission CT of abdomen AST and ALT are both normal now and bilirubin is improving Gastroenterology following s/p ERCP (on 04/29/23) with results noted (5) Hypertension: Code(s): I10 - Essential (primary) hypertension Status: Chronic Assessment and Plan: blood pressure fluctuating but better currently follow trend of hemodynamics (6) Chronic pain syndrome: Code(s): G89.4 - Chronic pain syndrome Status: Chronic Assessment and Plan: follows with pain management Will continue to follow. Subjective Date/time seen: 04/30/23 11:00 Interval history: Follow-up for acute kidney injury/acute renal failure on chronic kidney disease. Tolerated ERCP yesterday without any issue or problems; renal function improving/stabilizing by trend of labs with reasonable urine output; sitting up in chair in no apparent distress. Exam Narrative: General: frail and elderly female in NAD Heart: normal S1 and S2; no rub Lungs: decreased breath sounds at the bases Abdomen: soft, nontender, nondistended, positive bowel sounds Extremities: trace bilateral edema Skin: warm and dry Objective Data Vital Signs Vital Signs: Vital Signs Temp Pulse Resp BP Pulse Ox O2 Del Method O2 Flow Rate 04/30/23 08:24 92 Nasal Cannula 1 04/30/23 08:19 92 Nasal Cannula 1 04/30/23 08:08 80 04/30/23 06:00 98.6 F 81 20 133/80 92 04/29/23 20:49 88 04/29/23 20:39 98.8 F 90 20 132/61 94 04/29/23 16:00 74 04/29/23 14:40 97 04/29/23 13:47 97.8 F 76 22 H 143/65 H 94 04/29/23 13:28 82 22 H 141/61 H 92 Nasal Cannula 2 04/29/23 13:18 84 20 150/71 H 91 Nasal Cannula 2 04/29/23 13:08 82 20 137/55 L 92 Nasal Cannula 2 04/29/23 12:41 Simple Face Mask 4 04/29/23 12:58 93 23 H 147/66 H 91 Nasal Cannula 2 04/29/23 12:48 86 20 144/67 H 97 Simple Face Mask 4 04/29/23 12:38 97.5 F L 89 16 150/81 H 98 Simple Face Mask 6 Intake/Output Intake/Output: Intake & Output 04/27/23 04/28/23 04/29/23 04/30/23 23:59 23:59 23:59 23:59 Intake Total 3220 2166 1315 420 Output Total 1450 1250 1125 325 Balance 1770 916 190 95 Meds/Results Medications: Active Medications Generic Name Dose Route Start Last Admin Trade Name Jojo PRN Reason Stop Dose Admin Duloxetine HCl 60 mg 04/24/23 09:00 04/30/23 08:08 Duloxetine Hcl 60 Mg Capsule.Dr PO 60 mg DAILY SIOMARA Administration Ce
--- NOTE | 2023-04-30 11:29 | PCNFU ---
Nutrition Follow-Up Complete: Inadequate energy intake related to NPO status as evidenced by current diet orders Goal:Meet estimated needs Pt current nutrition is Full liquids. Nutrition recommendation: Add Ensure compact TID with all meals Last recorded weight is 63.2 kg. Bowel Motility: +BM 04/29 Labs Reviewed: GFR:8, BUN:83, Cr:5.2, Glu:174 Meds Noted: KCL, protonix Skin: No skin issues noted Additional Notes: pt was on a soft and bite sized diet, downgraded to full liquids at this time. Intake is minimal but she does drink liquids ok per nursing. Will resume Ensure compact TID for an additional 220kcals, 9g protein per shake. Monitor for diet order, intake, wt, labs. Follow up in 3 days.
[2023-04-30] MEDS: POTASSIUM CHLORIDE INJ 40 MEQ in SODIUM CHLORIDE 0.9% IV 500 ML 130 MEQ IVPB (12:26)
--- NOTE | 2023-04-30 12:29 | PM.IMPN ---
Progress Note: A&P Assessment and Plan (1) Acute on chronic kidney failure: Code(s): N17.9 - Acute kidney failure, unspecified; N18.9 - Chronic kidney disease, unspecified Status: Acute Assessment and Plan: cr elevated Appreciate Nephrology input Kidney function is improving and likely approaching baseline. (2) Aspiration pneumonia: Code(s): J69.0 - Pneumonitis due to inhalation of food and vomit Status: Acute Assessment and Plan: Patient has completed course of antibiotics. Will DC antibiotics today. (3) Choledocholithiasis: Code(s): K80.50 - Calculus of bile duct without cholangitis or cholecystitis without obstruction Status: Acute Assessment and Plan: ERCP noted. (4) Transaminitis: Code(s): R74.01 - Elevation of levels of liver transaminase levels Status: Acute Assessment and Plan: ERCP noted. (5) Diarrhea: Code(s): R19.7 - Diarrhea, unspecified Status: Acute Assessment and Plan: monitor (6) Chronic pain syndrome: Code(s): G89.4 - Chronic pain syndrome Status: Chronic (7) Chronic prescription opiate use: Code(s): Z79.891 - terminal carman (current) use of opiate analgesic Status: Acute (8) Abnormal urinalysis: Code(s): R82.90 - Unspecified abnormal findings in urine Status: Acute (9) Cardiomegaly: Code(s): I51.7 - Cardiomegaly Status: Acute Subjective Date/time seen: 04/30/23 12:29 Interval history: Patient is resting. Exam Narrative: Chest - bibasilar R>L inspiratory crackles. CV - RRR S1/S2; Tele showing no acute dysrhythmias Abd - Soft, NT/ND, Positive BS. Fecal containment system is in place with small amount of brown stool in bag. - Foely secured with small amount of dark yellow urine in bag Ext - No pedal edema Neuro - awake. mumbles answers to questions. Right ways operator slightly weaker thenleft. Dorsi and plantar flexion intact and equal Skin - Warm and dry Objective Data Vital Signs Vital Signs: Vital Signs - 24 hr 04/29/23 12:38 04/29/23 12:48 04/29/23 12:58 Temperature 97.5 F L Pulse Rate 89 86 93 Respiratory Rate 16 20 23 H Blood Pressure 150/81 H 144/67 H 147/66 H Pulse Oximetry 98 97 91 Oxygen Delivery Simple Face Mask Simple Face Mask Nasal Cannula Oxygen Flow Rate 6 4 2 Fraction of Inspired Oxygen 04/29/23 12:41 04/29/23 13:08 04/29/23 13:18 Temperature Pulse Rate 82 84 Respiratory Rate 20 20 Blood Pressure 137/55 L 150/71 H Pulse Oximetry 92 91 Oxygen Delivery Simple Face Mask Nasal Cannula Nasal Cannula Oxygen Flow Rate 4 2 2 Fraction of Inspired Oxygen 04/29/23 13:28 04/29/23 13:47 04/29/23 14:40 Temperature 97.8 F Pulse Rate 82 76 Respiratory Rate 22 H 22 H Blood Pressure 141/61 H 143/65 H Pulse Oximetry 92 94 97 Oxygen Delivery Nasal Cannula Oxygen Flow Rate 2 Fraction of Inspired Oxygen 04/29/23 16:00 04/29/23 20:39 04/29/23 20:49 Temperature 98.8 F Pulse Rate 74 90 88 Respiratory Rate 20 Blood Pressure 132/61 Pulse Oximetry 94 Oxygen Delivery Oxygen Flow Rate Fraction of Inspired Oxygen 04/30/23 06:00 04/30/23 08:08 04/30/23 08:19 Temperature 98.6 F Pulse Rate 81 80 Respiratory Rate 20 Blood Pressure 133/80 Pulse Oximetry 92 92 Oxygen Delivery Nasal Cannula Oxygen Flow Rate 1 Fraction of Inspired Oxygen 24 04/30/23 08:24 Temperature Pulse Rate Respiratory Rate Blood Pressure Pulse Oximetry 92 Oxygen Delivery Nasal Cannula Oxygen Flow Rate 1 Fraction of Inspired Oxygen Intake/Output Intake/Output: Intake & Output 04/27/23 04/28/23 04/29/23 04/30/23 23:59 23:59 23:59 23:59 Intake Total 3220 2166 1315 420 Output Total 1450 1250 1125 325 Balance 1770 916 190 95 Meds/Results Medications: Active Medications Generic Name Dose Route Start Last Admin Trade Name Freq PRN Reason Stop Dose Admin D
[2023-04-30] MEDS: SODIUM CHLORIDE 0.9% IV 1,000 ML 30 ML IV CONT (12:37)
[2023-04-30] MEDS: HYDROcodone/acetaminophen (*CRX) 7.5-325 MG TABLET 1 TAB PO (15:32)
[2023-05-01] VITALS (9 sets, daily range): BP systolic 167–183; BP diastolic 82–95; PULSE 82–103; RESP 16–24; TEMP 36.4–36.7; O2SAT 91–94
[2023-05-01 06:06] LABS: Basophils Absolute Auto 0.1 K/mm3 (0.0-0.1); Basophils Percent Auto 0.4 % (0.2-1.2); Eosinophils Absolute Auto 0.1 K/mm3 (0-0.3); Eosinophils Percent Auto 0.4 % (0-4.4); Hematocrit 27.4 % (37.0-47.0); Hemoglobin 8.7 g/dL (12.0-15.0); Immature Granulocyte Absolute 0.12 K/mm3 (0.00-0.031); Immature Granulocyte Percent A 0.9 % (0-0.5); Lymphocytes Absolute Auto 2.33 K/mm3 (0.9-3.2); Lymphocytes Percent Auto 17.4 % (18.3-44.2); Mean Corpuscular HGB Conc 31.8 g/dl (32-36); Mean Corpuscular Hemoglobin 31.4 pg (26-34); Mean Corpuscular Volume 98.9 fl (80-100); Mean Platelet Volume 10.3 fl (7.4-10.4); Monocytes Absolute Auto 0.6 K/mm3 (0.1-0.6); Monocytes Percent Auto 4.7 % (2.6-8.5); Neutrophils Absolute Auto 10.2 K/mm3 (1.3-6.7); Neutrophils Percent Auto 76.2 % (45.5-73.1); Platelet Count Result 315 k/mm3 (150-375); Red Blood Count 2.77 M/mm3 (4.2-5.4); Red Cell Distribution Width 14.3 % (11.5-14.5); White Blood Count 13.4 K/mm3 (4.5-10.0)
[2023-05-01 06:15] LABS: Alanine Aminotransferase 41 U/L (6-35); Alkaline Phosphatase 455 U/L (38-126); Anion Gap 8 mmol/L (8-16); Aspartate Amino Transferase 88 U/L (14-36); Bilirubin,Total 2.8 mg/dL (0.2-1.3); Blood Urea Nitrogen 21 mg/dL (7-17); Calcium 7.1 mg/dL (8.4-10.2); Carbon Dioxide 28 mmol/L (22-30); Chloride 108 mmol/L (98-107); Estimated CRCL calculation 22 ml/min; Estimated Glomerular Filt Rate 36; Glucose 114 mg/dL (65-110); Phosphorus 2.8 mg/dL (2.5-4.5); Potassium 3.6 mmol/L (3.4-5.0); Sodium 144 mmol/L (137-145)
[2023-05-01] MEDS: LABETALOL HCL 100 MG TABLET 200 MG PO ×2 (08:45→21:27)
[2023-05-01] MEDS: DULoxetine HCL 60 MG CAPSULE.DR PO (08:45)
[2023-05-01] MEDS: PANTOPRAZOLE SODIUM IV 40 MG VIAL IV PUSH (08:46)
[2023-05-01] MEDS: SALINE LOCK FLUSH 10 ML IV PUSH ×3 (08:47→21:27)
[2023-05-01] MEDS: levETIRAcetam 500MG/NACL 100ML 500 MG/100 ML BAG 400 MG IVPB (10:14)
--- NOTE | 2023-05-01 10:21 | PCPTNOTE ---
On 05/01/23, the student, Carlotta VERA, provided care and completed [facility] documentation on this patient. I have reviewed the student's documentation and agree with the findings.
--- NOTE | 2023-05-01 12:28 | P.PNNP_ITS ---
Progress Note: A&P Assessment and Plan (1) KWADWO (acute kidney injury): Code(s): N17.9 - Acute kidney failure, unspecified Status: Acute Assessment and Plan: * improvement noted (if not back to baseline) * creatinine appears to the peaked/plateaued at 7.5mg/dl * history suggestive of volume depletion/dehydration * diminished oral intake * diarrhea * diminished urine output * likely worsened by NSAID use(?) * other factors playing a role: * infection (pneumonia +/- UTI) * gallstones * early sepsis (and possible ATN) * evauation to date: * CPK okay * CT of abdomen/renal ultrasound wtihout obstruction * urine eosinophils negative * urine electrolytes prerenal * follow trend of repeat labs and UOP (2) Chronic kidney disease, stage IV (severe): Code(s): N18.4 - Chronic kidney disease, stage 4 (severe) Status: Chronic Assessment and Plan: * unclear what baseline is -- last creatinine ~ 1.8mg/dl in March 2022 * presumably secondary to hypertension, vascular disease, and age (3) Aspiration pneumonia: Code(s): J69.0 - Pneumonitis due to inhalation of food and vomit Status: Acute Assessment and Plan: * as suggested by admission imaging and history * on antibiotics * blood cultures negative so far (4) Choledocholithiasis: Code(s): K80.50 - Calculus of bile duct without cholangitis or cholecystitis without obstruction Status: Acute Assessment and Plan: * present on admission CT of abdomen * AST and ALT are both normal now and bilirubin is improving * Gastroenterology following * s/p ERCP (on 04/29/23) with results noted (5) Hypertension: Code(s): I10 - Essential (primary) hypertension Status: Chronic Assessment and Plan: * blood pressure fluctuating but better currently * follow trend of hemodynamics (6) Chronic pain syndrome: Code(s): G89.4 - Chronic pain syndrome Status: Chronic Assessment and Plan: * follows with pain management Not opposed to discharge from renal perspective if otherwise medically stable. Will continue to follow. Subjective Date/time seen: 05/01/23 12:28 Interval history: Follow-up for acute kidney injury/acute renal failure on chronic kidney disease. Renal function continues to improve/stabilize in the last few days; no other apparent issues or problems voiced at this time; no issues/events overnight or earlier this morning. Exam Narrative: General: frail and elderly female in NAD Heart: normal S1 and S2; no rub Lungs: decreased breath sounds at the bases Abdomen: soft, nontender, nondistended, positive bowel sounds Extremities: trace bilateral edema Skin: warm and intact Objective Data Vital Signs Vital Signs: Vital Signs Temp Pulse Resp BP Pulse Ox O2 Del Method O2 Flow Rate 05/01/23 12:00 98.1 F 86 24 H 167/83 H 94 05/01/23 08:45 82 05/01/23 07:55 93 Nasal Cannula 1 05/01/23 06:00 98.1 F 103 H 16 183/95 H 93 04/30/23 21:46 94 Nasal Cannula 1 05/01/23 00:22 174/82 H 04/30/23 20:00 83 16 95 Nasal Cannula 1 04/30/23 22:00 99.3 F 83 16 180/85 H 95 04/30/23 21:12 83 Intake/Output Intake/Output: Intake
--- NOTE | 2023-05-01 12:28 | PM.PNNEP ---
Progress Note: A&P Assessment and Plan (1) KWADWO (acute kidney injury): Code(s): N17.9 - Acute kidney failure, unspecified Status: Acute Assessment and Plan: improvement noted (if not back to baseline) creatinine appears to the peaked/plateaued at 7.5mg/dl history suggestive of volume depletion/dehydration diminished oral intake diarrhea diminished urine output likely worsened by NSAID use(?) other factors playing a role: infection (pneumonia +/- UTI) gallstones early sepsis (and possible ATN) evauation to date: CPK okay CT of abdomen/renal ultrasound wtihout obstruction urine eosinophils negative urine electrolytes prerenal follow trend of repeat labs and UOP (2) Chronic kidney disease, stage IV (severe): Code(s): N18.4 - Chronic kidney disease, stage 4 (severe) Status: Chronic Assessment and Plan: unclear what baseline is -- last creatinine ~ 1.8mg/dl in March 2022 presumably secondary to hypertension, vascular disease, and age (3) Aspiration pneumonia: Code(s): J69.0 - Pneumonitis due to inhalation of food and vomit Status: Acute Assessment and Plan: as suggested by admission imaging and history on antibiotics blood cultures negative so far (4) Choledocholithiasis: Code(s): K80.50 - Calculus of bile duct without cholangitis or cholecystitis without obstruction Status: Acute Assessment and Plan: present on admission CT of abdomen AST and ALT are both normal now and bilirubin is improving Gastroenterology following s/p ERCP (on 04/29/23) with results noted (5) Hypertension: Code(s): I10 - Essential (primary) hypertension Status: Chronic Assessment and Plan: blood pressure fluctuating but better currently follow trend of hemodynamics (6) Chronic pain syndrome: Code(s): G89.4 - Chronic pain syndrome Status: Chronic Assessment and Plan: follows with pain management Not opposed to discharge from renal perspective if otherwise medically stable. Will continue to follow. Subjective Date/time seen: 05/01/23 12:28 Interval history: Follow-up for acute kidney injury/acute renal failure on chronic kidney disease. Renal function continues to improve/stabilize in the last few days; no other apparent issues or problems voiced at this time; no issues/events overnight or earlier this morning. Exam Narrative: General: frail and elderly female in NAD Heart: normal S1 and S2; no rub Lungs: decreased breath sounds at the bases Abdomen: soft, nontender, nondistended, positive bowel sounds Extremities: trace bilateral edema Skin: warm and intact Objective Data Vital Signs Vital Signs: Vital Signs Temp Pulse Resp BP Pulse Ox O2 Del Method O2 Flow Rate 05/01/23 12:00 98.1 F 86 24 H 167/83 H 94 05/01/23 08:45 82 05/01/23 07:55 93 Nasal Cannula 1 05/01/23 06:00 98.1 F 103 H 16 183/95 H 93 04/30/23 21:46 94 Nasal Cannula 1 05/01/23 00:22 174/82 H 04/30/23 20:00 83 16 95 Nasal Cannula 1 04/30/23 22:00 99.3 F 83 16 180/85 H 95 04/30/23 21:12 83 Intake/Output Intake/Output: Intake & Output 04/28/23 04/29/23 04/30/23 05/01/23 23:59 23:59 23:59 23:59 Intake Total 2166 1315 2200 280 Output Total 1250 1125 325 400 Balance 731 846 5962 -120 Meds/Results Medications: Active Medications Generic Name Dose Route Start Last Admin Trade Name Freq PRN Reason Stop Dose Admin Hydrocodone Bitart/Acetaminophen 1 tab 04/30/23 15:12 05/01/23 13:07 Hydrocodone/Acetaminophen (*Crx) 7.5-325 Mg Tablet PO 1 tab Q6H PRN Administration Pain Rated 1-6 Duloxetine HCl 60 mg 04/24/23 09:00 05/01/23 08:45 Duloxetine Hcl 60 Mg Capsule. PO 60 mg DAILY SIOMARA Administration Levetiracetam 500 mg in 100 mls @ 400 mls/hr 04/23/23 10:00 05/01/23 10:29 [place]
[2023-05-01] MEDS: HYDROcodone/acetaminophen (*CRX) 7.5-325 MG TABLET 1 TAB PO ×2 (13:07→21:32)
--- NOTE | 2023-05-01 14:02 | PM.DS ---
DS: Admitting Diagnosis Discharge Date 05/01/23 Admitting Diagnosis Weakness DS: Discharge Diagnosis Discharge Diagnosis (1) Acute on chronic kidney failure: Code(s): N17.9 - Acute kidney failure, unspecified; N18.9 - Chronic kidney disease, unspecified Status: Acute (2) Aspiration pneumonia: Code(s): J69.0 - Pneumonitis due to inhalation of food and vomit Status: Acute (3) Choledocholithiasis: Code(s): K80.50 - Calculus of bile duct without cholangitis or cholecystitis without obstruction Status: Acute (4) Transaminitis: Code(s): R74.01 - Elevation of levels of liver transaminase levels Status: Acute (5) Diarrhea: Code(s): R19.7 - Diarrhea, unspecified Status: Acute (6) Chronic pain syndrome: Code(s): G89.4 - Chronic pain syndrome Status: Chronic (7) Chronic prescription opiate use: Code(s): Z79.891 - prison (current) use of opiate analgesic Status: Acute (8) Abnormal urinalysis: Code(s): R82.90 - Unspecified abnormal findings in urine Status: Acute (9) Cardiomegaly: Code(s): I51.7 - Cardiomegaly Status: Acute DS: Summary Hospital Course Reason for hospitalization: 78yo female with hx of CVA with expressive aphasia, CKD, dementia, chronic pain? and CHF here for malaise, weakness, poor appetite, diarrhea, SOB and decreased UOP. Please see H&P for details. Hospital Course: Patient presents with malaise and poor oral intake. She was found have a creatinine 7.2. She also had metabolic acidosis and hyperkalemia. CT scan of the abdomen showed distended urinary bladder. Time Spent with Patient Time attestation: Total time spent providing and/or coordinating discharge services: Exam Narrative: Chest - bibasilar R>L inspiratory crackles. CV - RRR S1/S2; Tele showing no acute dysrhythmias Abd - Soft, NT/ND, Positive BS. Fecal containment system is in place with small amount of brown stool in bag. - Foely secured with small amount of dark yellow urine in bag Ext - No pedal edema Neuro - awake. mumbles answers to questions. Right capacity planner slightly weaker thenleft. Dorsi and plantar flexion intact and equal Skin - Warm and dry DS: Data Data Completed and Pending Labs on day of discharge: Labs from last 24 hours 05/01/23 05:56 WBC 13.4 H RBC 2.77 L Hgb 8.7 L Hct 27.4 L MCV 98.9 MCH 31.4 MCHC 31.8 L RDW 14.3 Plt Count 315 MPV 10.3 Immature Gran % (Auto) 0.9 H Neut % (Auto) 76.2 H Lymph % (Auto) 17.4 L [place] % (Auto) 4.7 Eos % (Auto) 0.4 Baso % (Auto) 0.4 Lymph # (Auto) 2.33 [place] # (Auto) 0.6 Eos # (Auto) 0.1 Baso # (Auto) 0.1 Abs Immat Gran (auto) 0.12 H Absolute Neuts (auto) 10.2 H Absolute Nucleated RBC 0.0 Nucleated RBC % 0.0 Sodium 144 Potassium 3.6 Chloride 108 H Carbon Dioxide 28 Anion Gap 8 BUN 21 H Creatinine 1.40 H Estim Creat Clear Calc 22 Estimated GFR 36 L Glucose 114 H Calcium 7.1 L Phosphorus 2.8 Total Bilirubin 2.8 H AST 88 H ALT 41 H Alkaline Phosphatase 455 H Total Protein 7.0 Albumin 3.0 L Discharge Plan Discharge Consulting providers: Akbar Briggs; Therese Taylor Patient Instructions: Acute Kidney Injury (DC), Pain Management in Older Adults (GEN), Pneumonia (DC), ERCP (Endoscopic Retrograde Cholangiopancreatography) (DC) Discharge Medications: No Action levetiracetam 500 mg tablet 500 mg PO Q12H aspirin [Annita Chewable Aspirin] 81 mg tablet,chewable 81 mg PO DAILY hydrocodone-acetaminophen 7.5-500 mg tablet 1 tablet PO BID Myrbetriq 25 mg tablet extended release 24 hr 25 mg PO DAILY Rx Instructions: TAKE 1 TABLET BY MOUTH DAILY. meloxicam 15 mg tablet 15 mg PO DAILY morphine 15 mg tablet extended release 15 mg PO BID labetalol 200 mg tablet 400 mg PO Q12H Qty: 360 2RF Rx Instructions: 2 tablets twice da
--- NOTE | 2023-05-01 16:42 | PM.IMPN ---
Progress Note: A&P Assessment and Plan (1) Acute on chronic kidney failure: Code(s): N17.9 - Acute kidney failure, unspecified; N18.9 - Chronic kidney disease, unspecified Status: Acute Assessment and Plan: Patient had a creatinine of 1.8 in March 2022. No other lab values available over the past year. Creatinine was 7.2 on admission with metabolic acidosis and hyperkalemia. CT scan of the abdomen shows mildly distended urinary bladder without wall thickening. Kidneys appeared normal. Renal ultrasound shows medical renal disease with gallbladder sludge. [place] related to NSAIDs, ATN from choledocholithiasis and/or diarrhea. Nephrology consulted and appreciate their input. Cr 1.4 now. She is off IV fluids. Will give Lasix once to see if this improves her mild hypoxia. (2) Aspiration pneumonia: Code(s): J69.0 - Pneumonitis due to inhalation of food and vomit Status: Acute Assessment and Plan: Chest x-ray showed right lower lobe infiltrate. CT of the abdomen pelvis showed dependent right middle lobe and right lower lobe ground-glass and centrilobular and nodular opacity concerning for pneumonia. COVID/RSV/Influenza negative. Patient started on Rocephin, azithromycin and Flagyl. Blood cultures were negative. Speech therapy (with MBS) recommended Level 6 diet. She completed her abx. (3) Choledocholithiasis: Code(s): K80.50 - Calculus of bile duct without cholangitis or cholecystitis without obstruction Status: Acute Assessment and Plan: CT of the abdomen and pelvis shows gallbladder hydrops with mild intrahepatic and moderate extrahepatic bile duct dilatation. There was a 10 mm and a 9 mm gallstone in the distal common bile duct. Bilirubin was 3.1 and alk phos was 420. AST and ALT were mildly elevated. Lipase is normal. GI was consulted. She underwent ERCP with sphincterotomy and impacted major papilla stone extraction on 04/29/23. She tolerated the procedure well. (4) Transaminitis: Code(s): R74.01 - Elevation of levels of liver transaminase levels Status: Acute Assessment and Plan: Hepatitis panel negative. Related to above (5) Diarrhea: Code(s): R19.7 - Diarrhea, unspecified Status: Acute Assessment and Plan: Patient was having excessive diarrhea. No recent antibiotic exposure. Stool studies were ordered. She required a fecal containment system at one point. CDiff negative. All other stool studies negative as well. She completed a course of Flagyl. Resolved (6) Chronic pain syndrome: Code(s): G89.4 - Chronic pain syndrome Status: Chronic Assessment and Plan: Patient was on chronic morphine twice a day as MS Contin. She also takes hydrocodone p.r.n. for breakthrough pain. She is off MS Contin now. Continue prn pain medications. (7) Chronic prescription opiate use: Code(s): Z79.891 - long-term (current) use of opiate analgesic Status: Acute Assessment and Plan: as above (8) Abnormal urinalysis: Code(s): R82.90 - Unspecified abnormal findings in urine Status: Acute Assessment and Plan: UA noted. Urine culture negative. UTI ruled out. (9) Cardiomegaly: Code(s): I51.7 - Cardiomegaly Status: Acute Assessment and Plan: [place] [address]. Chest x-ray as mentioned above. Echocardiogram shows EF of 65-70% with grade 3 diastolic dysfunction and moderate aortic stenosis. Patient more likely has pneumonia than CHF exacerbation. Subjective Date/time seen: 05/01/23 16:42 Interval history: 78yo female with hx of CVA with expressive aphasia, CKD, dementia, chronic pain and CHF here for malaise, weakness, poor appetite, diarrhea, SOB and decreased UOP. Assuming care. Chart reviewed. She is alert but mildly confused. She did sleep poorly. No CP. Feels SOB and having a cough productive of brown sputum.
[2023-05-01] MEDS: FUROSEMIDE INJ 40 MG/4 ML VIAL 20 MG IV PUSH (17:56)
[2023-05-01] MEDS: FAMOTIDINE 20 MG TABLET PO (21:26)
[2023-05-01] MEDS: levETIRAcetam 500 MG TABLET PO (21:27)
[2023-05-02] MEDS: HYDROcodone/acetaminophen (*CRX) 7.5-325 MG TABLET 1 TAB PO ×2 (02:53→10:39)
[2023-05-02 05:34] VITALS: BP 172/84; PULSE 89; RESP 20; TEMP 36.6; O2SAT 90
[2023-05-02 06:09] LABS: Basophils Percent Auto 0.2 % (0.2-1.2); Eosinophils Absolute Auto 0.1 K/mm3 (0-0.3); Eosinophils Percent Auto 0.4 % (0-4.4); Hematocrit 23.3 % (37.0-47.0); Hemoglobin 7.5 g/dL (12.0-15.0); Immature Granulocyte Absolute 0.06 K/mm3 (0.00-0.031); Immature Granulocyte Percent A 0.5 % (0-0.5); Lymphocytes Absolute Auto 2.98 K/mm3 (0.9-3.2); Lymphocytes Percent Auto 24.8 % (18.3-44.2); Mean Corpuscular HGB Conc 32.2 g/dl (32-36); Mean Corpuscular Hemoglobin 31.3 pg (26-34); Mean Corpuscular Volume 97.1 fl (80-100); Monocytes Absolute Auto 0.7 K/mm3 (0.1-0.6); Monocytes Percent Auto 5.7 % (2.6-8.5); Neutrophils Absolute Auto 8.2 K/mm3 (1.3-6.7); Neutrophils Percent Auto 68.4 % (45.5-73.1); Platelet Count Result 278 k/mm3 (150-375); Red Cell Distribution Width 14.6 % (11.5-14.5)
[2023-05-02] MEDS: SALINE LOCK FLUSH 10 ML IV PUSH (06:29)
[2023-05-02 06:32] LABS: Alanine Aminotransferase 41 U/L (6-35); Albumin Level 2.6 g/dL (3.5-5.1); Alkaline Phosphatase 347 U/L (38-126); Anion Gap 4 mmol/L (8-16); Aspartate Amino Transferase 86 U/L (14-36); Bilirubin,Total 2.4 mg/dL (0.2-1.3); Blood Urea Nitrogen 18 mg/dL (7-17); Calcium 6.7 mg/dL (8.4-10.2); Carbon Dioxide 32 mmol/L (22-30); Chloride 105 mmol/L (98-107); Estimated CRCL calculation 23 ml/min; Estimated Glomerular Filt Rate 39; Glucose 108 mg/dL (65-110); Magnesium 0.8 mg/dL (1.6-2.3); Phosphorus 3.2 mg/dL (2.5-4.5); Potassium 2.9 mmol/L (3.4-5.0); Sodium 141 mmol/L (137-145)
[2023-05-02 08:47] VITALS: PULSE 79
[2023-05-02] MEDS: LABETALOL HCL 100 MG TABLET 200 MG PO (08:47)
[2023-05-02] MEDS: POTASSIUM CHLORIDE 20 MEQ PACKET (FOR LIQUID) 40 MEQ PO ×2 (08:47→13:53)
[2023-05-02] MEDS: MAGNESIUM SULFATE 3GM/D5W100ML 3 GM/100 ML BAG IVPB (08:47)
[2023-05-02] MEDS: DULoxetine HCL 60 MG CAPSULE.DR PO (08:47)
[2023-05-02] MEDS: levETIRAcetam 500 MG TABLET PO (08:48)
[2023-05-02] MEDS: ASPIRIN 81 MG CHEWABLE TABLET PO (08:49)
[2023-05-02] MEDS: FAMOTIDINE 20 MG TABLET PO (08:49)
[2023-05-02] MEDS: FUROSEMIDE INJ 40 MG/4 ML VIAL 20 MG IV PUSH (10:00)
[2023-05-02 12:18] LABS: Magnesium 1.4 mg/dL (1.6-2.3); Potassium 3.1 mmol/L (3.4-5.0)
--- NOTE | 2023-05-02 13:06 | PM.DS ---
DS: Admitting Diagnosis Discharge Date 05/02/23 Admitting Diagnosis Weakness DS: Discharge Diagnosis Discharge Diagnosis (1) Acute on chronic kidney failure: Code(s): N17.9 - Acute kidney failure, unspecified; N18.9 - Chronic kidney disease, unspecified Status: Acute (2) Aspiration pneumonia: Code(s): J69.0 - Pneumonitis due to inhalation of food and vomit Status: Acute (3) Choledocholithiasis: Code(s): K80.50 - Calculus of bile duct without cholangitis or cholecystitis without obstruction Status: Acute (4) Transaminitis: Code(s): R74.01 - Elevation of levels of liver transaminase levels Status: Acute (5) Diarrhea: Code(s): R19.7 - Diarrhea, unspecified Status: Acute (6) Chronic pain syndrome: Code(s): G89.4 - Chronic pain syndrome Status: Chronic (7) Chronic prescription opiate use: Code(s): Z79.891 - halfway (current) use of opiate analgesic Status: Acute (8) Abnormal urinalysis: Code(s): R82.90 - Unspecified abnormal findings in urine Status: Acute (9) Cardiomegaly: Code(s): I51.7 - Cardiomegaly Status: Acute DS: Summary Hospital Course Reason for hospitalization: 78yo female with hx of CVA with expressive aphasia, CKD, dementia, chronic pain? and CHF here for malaise, weakness, poor appetite, diarrhea, SOB and decreased UOP. Please see H&P for details Hospital Course: Patient had a creatinine of 1.8 in March 2022.? No other lab values available over the past year.? Creatinine was 7.2 on admission with metabolic acidosis and hyperkalemia.? CT scan of the abdomen showed mildly distended urinary bladder without wall thickening.? Kidneys appeared normal.? Renal ultrasound shows medical renal disease with gallbladder sludge. [place] [facility] related to NSAIDs, ATN from choledocholithiasis, PNA and/or diarrhea. Nephrology consulted and appreciate their input. Cr 1.3 now. Chest x-ray showed right lower lobe infiltrate.? CT of the abdomen pelvis showed dependent right middle lobe and right lower lobe ground-glass and centrilobular and nodular opacity concerning for pneumonia.? COVID/RSV/Influenza negative. Patient was started on Rocephin, azithromycin and Flagyl.? Blood cultures were negative.? Speech therapy (with [facility] [place]) recommended Level 6 diet. She completed her abx. CT of the abdomen and pelvis also showed gallbladder hydrops with mild intrahepatic and moderate extrahepatic bile duct dilatation.? There was a 10 mm and a 9 mm gallstone in the distal common bile duct.? Bilirubin was 3.1 and alk phos was 420.? AST and ALT were mildly elevated.? Lipase was normal.? GI was consulted.? She underwent ERCP with sphincterotomy and impacted major papilla stone extraction on 04/29/23. She tolerated the procedure well. Hepatitis panel negative. LFTs improved. Patient was having excessive diarrhea.? No recent antibiotic exposure.? Stool studies were ordered.? She required a fecal containment system at one point. CDiff was negative. All other stool studies negative as well.? She completed a course of Flagyl.?Was still having loose stools but was on full liquid diet. This improved with diet advancement. Still loose but more formed per RN. Patient has chronic pain issues and was on chronic morphine twice a day as MS Contin.? She also was taking hydrocodone p.r.n. for breakthrough pain.? She was weaned off MS Contin. We continued prn pain medications. Cardiomegaly noted on imaging.? BNP was 33871.?Echo shows EF of 65-70% with grade 3 diastolic dysfunction and moderate aortic stenosis.? Patient more likely had pneumonia than CHF exacerbation. She did require IV lasix toward the end of her hospital stay due to edema felt related to the IV fluids. She had clinical improvement adn was able to be discharged on 05/02/23. Status at Discharge Cognitive/behavioral status at discharge: stable Time Spent with Patient Time attestation: Total time spent pro
[2023-05-02] MEDS: MAGNESIUM SULF 2 GM/WATER 50ML 2 GM/50 ML BAG IVPB (13:53)
[2023-05-02 14:00] VITALS: BP 153/82; PULSE 78; RESP 18; TEMP 36.7; O2SAT 91
[2023-05-02 14:42] LABS: SARS-CoV-2 RNA PCR Negative (Negative)
[2023-05-10 19:50] LABS: Albumin 16 %
== END 2023-05-02 15:50 | DRG 871 ==
LOC: ANHED 15:57 → ANH3MEDSUR 16:47
PROVIDERS: Chiropractor; Internal Medicine Gastroenterology; Internal Medicine Nephrology; Physician Assistant; Admitting Provider Hospitalist; Emergency Provider Emergency Medicine; PCP Family Medicine; Visit Provider Internal Medicine
PROC: 0FC98ZZ Extirpation of Matter from Common Bile Duct, Via Natural or Artificial Opening Endoscopic (ICD-10-PCS; CPT 43260; principal; 2023-04-29 14:15)
DX: A41.9 Sepsis, unspecified organism (principal); J18.9 Pneumonia, unspecified organism; J69.0 Pneumonitis due to inhalation of food and vomit; N17.0 Acute kidney failure with tubular necrosis; I13.0 Hypertensive heart and chronic kidney disease with heart failure and stage 1 through stage 4 chronic kidney disease, or unspecified chronic kidney disease; N18.4 Chronic kidney disease, stage 4 (severe); K31.9 Disease of stomach and duodenum, unspecified; R09.02 Hypoxemia; I50.9 Heart failure, unspecified; Z20.822 Contact with and (suspected) exposure to COVID-19; K80.50 Calculus of bile duct without cholangitis or cholecystitis without obstruction; R74.01 Elevation of levels of liver transaminase levels; G89.4 Chronic pain syndrome; R19.7 Diarrhea, unspecified; E86.0 Dehydration; D72.829 Elevated white blood cell count, unspecified; R82.90 Unspecified abnormal findings in urine; I51.7 Cardiomegaly; Z66 Do not resuscitate; I69.320 Aphasia following cerebral infarction; F03.90 Unspecified dementia, unspecified severity, without behavioral disturbance, psychotic disturbance, mood disturbance, and anxiety; Z79.891 Long term (current) use of opiate analgesic; Z79.82 Long term (current) use of aspirin; Z85.72 Personal history of non-Hodgkin lymphomas; Z98.1 Arthrodesis status
CPT/HCPCS: 36415; 36569; 70450; 71045; 71046; 74176; 74329; 76775; 80048; 80053; 80069; 80074; 81001; 82550; 82570; 82607; 82728; 82746; 83540; 83550; 83690; 83735; 83880; 84100; 84132; 84133; 84155; 84156; 84165; 84300; 84540; 85025; 85027; 85999; 86140; 86160; 86162; 86335; 86738; 87040; 87045; 87086; 87269; 87272; 87427; 87449; 87493; 87635; 87637; 87899; 92611; 93005; 93306; 96361; 96365; 96367; 96368; 97110; 97162; 97166; 97530; 97535; 99285; A9270; C1751; C9113; G0378; J0330; J0456; J0612; J0696; J0780; J1836; J1940; J1953; J2270; J2704; J3475; J3480; J7030; J7040; J7070; J7120; Q9966